=== PATIENT | male | born 1945 | race Caucasian/White ===

== ENCOUNTER → 2019-01-23 | Outpatient (CLI) | payer MEDICARE, BC ==
--- NOTE | 2019-01-23 15:21 | XR ---
EXAMINATION TYPE: XR KUB DATE OF EXAM: 01/23/2019 2:20 PM CLINICAL HISTORY: Abdominal pain. Right flank pain. TECHNIQUE: Single supine KUB image of the abdomen is obtained. COMPARISON: None. FINDINGS: Scattered gas is seen in nondilated small bowel loops. Gas and fecal material is seen in no ndilated colon. Supine imaging limiting evaluation for pneumoperitoneum. No gross evidence of pneumop eritoneum. No suspicious calcifications seen in the abdomen. The lung bases are clear and the osseous structures are intact. Moderate degenerative changes of the spine and hips. Old fracture deformity o f the left L3 transverse process. Small phleboliths are seen within the pelvis. IMPRESSION: Nonobstructive bowel gas pattern.
== END | disposition home or self-care (01) ==
LOC: RADXRMAIN 14:08
PROVIDERS: ATTEND Nurse Practitioner Women's Health
DX: R10.9 Unspecified abdominal pain (principal)
CPT/HCPCS: 74018

== ENCOUNTER → 2019-08-01 | Outpatient (CLI) | payer MEDICARE, BC ==
--- NOTE | 2019-08-01 10:04 | CT ---
EXAMINATION TYPE: CT lumbar spine wo con DATE OF EXAM: 08/01/2019 COMPARISON: None HISTORY: low back pain CT DLP: 1416.2 mGycm CONTRAST: None TECHNIQUE: CT of the lumbar spine is performed on a spiral scan at 3 mm thick sections. Reconstructed images are performed in the coronal and sagittal planes. FINDINGS: T12-L1: No focal disc herniation or significant disc bulge is evident. No spinal canal stenosis or neural foraminal stenosis is present. L1-L2: No focal disc herniation or significant disc bulge is evident. No spinal canal stenosis or n eural foraminal stenosis is present L2-L3: Minimal disc bulge is present. Some facet hypertrophy is present. No spinal canal stenosis or neural foraminal stenosis is present. L3-L4: Broad-based disc bulge has mild anterior thecal sac compression. Facet degenerative changes ar e present. Some ligamentum flavum laxity is present. No spinal canal stenosis or neural foraminal bartolo nosis is present. L4-L5: There is a grade 1 spondylolisthesis of L4 anterior on L5. Marked facet hypertrophy is present . Ligamentum flavum laxity is present. Disc uncovering in conjunction with the ligamentum flavum laxi ty is contributing to spinal canal narrowing. Moderate left and slightly more severe right foraminal stenosis is present. L5-S1: There is loss of disc height to this level. Some endplate spurring is present. No spinal canal stenosis or neural foraminal stenosis is present. IMPRESSION: 1. Grade 1 spondylolisthesis of L4 anterior and L5. 2. Disc uncovering at L4-5 in conjunction with ligamentum flavum laxity is contributing to spinal can al narrowing. 3. Foraminal narrowing L4-5 secondary to disc uncovering. This is greater on the right than the left. Correlate with L5 radicular symptoms. 4. Degenerative facet changes to the mid and lower lumbar spine.
== END | disposition home or self-care (01) ==
LOC: RADCTMAIN 06:43
PROVIDERS: ATTEND Family Medicine
DX: M43.16 Spondylolisthesis, lumbar region (principal); M48.061 Spinal stenosis, lumbar region without neurogenic claudication; M47.816 Spondylosis without myelopathy or radiculopathy, lumbar region; Z88.0 Allergy status to penicillin
CPT/HCPCS: 72131

== ENCOUNTER 2022-12-17 07:49 | Day surgery (SDC) | payer MEDICARE, BC ==
[2022-12-17] MEDS ORDERED: LIDOCAINE 1% (10MG/ML) FOR IV START INTRADERMA PRN (08:36)
[2022-12-17] MEDS ORDERED: LACTATED RINGERS 1,000 ML IV SCH (08:36)
[2022-12-17] MEDS ORDERED: LACTATED RINGERS 1,000 ML IV ONE (08:41)
[2022-12-17 08:50] VITALS: TEMP 98
[2022-12-17] MEDS ORDERED: PROPOFOL 10 MG/ML 20 ML VIAL IV ONE (09:01)
--- NOTE | 2022-12-17 09:04 | P.GSHP ---
History of Present Illness H&P Date: 12/17/22 Chief Complaint: Positive colon guard test Is a 77-year-old male who recently has a positive colon guard test. Patient presents today for colonoscopy. Past Medical History Past Medical History: Asthma, COPD, Hyperlipidemia, Hypertension History of Any Multi-Drug Resistant Organisms: None Reported Past Surgical History: Joint Replacement, Orthopedic Surgery, Tonsillectomy Additional Past Surgical History / Comment(s): colonoscopy, both knee replacements, back surgery , Additional Past Anesthesia/Blood Transfusion Reaction / Comment(s): heart skipped some beats during colonoscopy, no blood transfusion Smoking Status: Former smoker Medications and Allergies Home Medications Medication Instructions Recorded Confirmed Type Aspirin 325 mg PO DAILY 12/16/22 12/16/22 History Fluticasone Propion/Salmeterol 1 puff INHALATION BID PRN 12/16/22 12/16/22 His tory [Advair 500-50 Diskus] Ipratropium/Albuter 20-100Mcg 1 puff INHALATION DAILY PRN 12/16/22 12/16/22 History [Combivent Respimat 20-100Mcg Inhaler] Losartan Potassium 25 mg PO DAILY 12/16/22 12/16/22 History Probenecid [Benemid] 500 mg PO BID 12/16/22 12/16/22 History Rosuvastatin [Crestor] 10 mg PO DAILY 12/16/22 12/16/22 History hydrALAZINE HCL 25 mg PO BID 12/16/22 12/16/22 History hydroCHLOROthiazide [Hydrodiuril] 25 mg PO DAILY 12/16/22 12/16/22 History Allergies Allergy/AdvReac Type Severity Reaction Status Date / Time Penicillins AdvReac Rash/Hives Verified 12/16/22 08:27 Surgical - Exam Vital Signs Temp Pulse Resp BP Pulse Ox 98 F 64 18 152/80 95 12/17/22 08:41 12/17/22 08:41 12/17/22 08:41 12/17/22 08:41 12/17/22 08:41 - General well developed, well nourished, no distress - Eyes PERRL - ENT normal pinna - Neck no masses - Respiratory normal expansion - Cardiovascular Rhythm: regular - Abdomen Abdomen: soft, non tender Assessment and Plan Assessment: Positive colon guard test. We'll perform colonoscopy.
--- NOTE | 2022-12-17 09:16 | P.OP ---
Date of Procedure: 12/17/22 Preoperative Diagnosis: Positive colon guard test Screening colonoscopy Postoperative Diagnosis: Diverticulosis Procedure(s) Performed: Colonoscopy Anesthesia: MAC Surgeon: Sarbjit Roca Pathology: none sent Condition: stable Disposition: PACU Description of Procedure: The patient's placed on the endoscopy table in the lateral position. He received IV sedation. Digital rectal exam was performed. This revealed no ebonized. Flexible colonoscope was then placed patient anus and passed throughout the entire colon. The ileocecal valve was visualized. The cecum, ascending and transverse colon appeared normal. The descending and and sigmoid colon had mild diverticulosis. Scope summer back the rectum this appeared normal. Scope withdrawn for patient. There is no evidence of any colon polyps.
[2022-12-17 09:56] VITALS: BP 123/78; PULSE 67; RESP 20
== END 2022-12-17 10:10 | disposition home or self-care (01) ==
LOC: ORWHC2ENDO 07:49
PROVIDERS: ATTEND Surgery
DX: Z12.11 Encounter for screening for malignant neoplasm of colon (principal); R19.5 Other fecal abnormalities; K57.92 Diverticulitis of intestine, part unspecified, without perforation or abscess without bleeding; I10 Essential (primary) hypertension; E78.5 Hyperlipidemia, unspecified; J45.909 Unspecified asthma, uncomplicated; Z88.0 Allergy status to penicillin; Z87.891 Personal history of nicotine dependence; Z79.51 Long term (current) use of inhaled steroids; Z79.899 Other long term (current) drug therapy
CPT/HCPCS: 45378; J2704

== ENCOUNTER → 2023-04-28 | Outpatient (CLI) | payer MEDICARE, BC ==
--- NOTE | 2023-05-01 12:41 | CT ---
EXAMINATION TYPE: CT lumbar spine wo con CT DLP: 1353.40 mGycm, Automated exposure control for dose reduction was used. DATE OF EXAM: 04/28/2023 1:51 PM COMPARISON: 08/01/2019. CLINICAL INDICATION:Male, 78 years old with history of R31.9,N54.50 LOW BACK PAIN, UNSPECIFIED,D72.82 9, Low back pain, frequent urination, hematuria, denies injury. Back sx 1994. TECHNIQUE: Multiple axial images were obtained from the midportion of T11 through the sacroiliac jacuqelin nts. Soft tissue and bone windows in coronal and sagittal planes were obtained and reviewed. Contrast used: mL of , (None, if empty). Oral contrast used: (None, if empty). FINDINGS: Alignment: There are 5 lumbar type vertebral bodies with grade 1 anterolisthesis of L4 and L5. No spo ndylolysis. Bone: Severe facet joint arthropathy at L4-L5 and L5-S1. The remainder of the levels have mild to mod erate facet joint arthropathy. There is early pseudoarthrosis of the spinous processes in the lower s pine. Multilevel degeneration changes with osteophyte formation disc space narrowing and osteophyte f ormation. Discs: T12-L1: No spinal canal or neural foraminal stenosis is identified. L1-L2: No spinal canal or neural foraminal stenosis is identified. L2-L3: No spinal canal or neural foraminal stenosis is identified. L3-L4: No spinal canal or neural foraminal stenosis is identified. L4-L5: Grade 1 anterolisthesis of L4 on L5 with moderate spinal canal stenosis. There is mild to mode rate neural foraminal stenosis at this level. L5-S1: Facet joint arthropathy, osteophytes and disc bulging result in mild spinal canal stenosis and moderate bilateral neural foraminal stenosis. Other: Severe atherosclerosis of the coronary arteries. Few scattered colonic diverticula. IMPRESSION: Overall findings may be minimally progressed from 2019. 1. Grade 1 anterolisthesis of L4 and L5 without spondylolysis. Moderate spinal canal stenosis at thi s level. 2. Mild to moderate degeneration changes worse at L5-S1 with moderate bilateral neural foraminal bartolo nosis. 3. Findings suggestive of early Baastrup's disease.
== END | disposition home or self-care (01) ==
LOC: RADCTMAIN 12:29
PROVIDERS: ATTEND Family Medicine
DX: R31.9 Hematuria, unspecified (principal); D72.829 Elevated white blood cell count, unspecified; M43.16 Spondylolisthesis, lumbar region; M51.37 Other intervertebral disc degeneration, lumbosacral region; M99.73 Connective tissue and disc stenosis of intervertebral foramina of lumbar region; M48.061 Spinal stenosis, lumbar region without neurogenic claudication; M47.816 Spondylosis without myelopathy or radiculopathy, lumbar region
CPT/HCPCS: 72131

== ENCOUNTER 2023-12-31 12:17 | Observation (INO) | payer MEDICARE, BC ==
[2023-12-31 12:31] LABS: Glucose,Whole Blood 173 mg/dL (70-110)
--- NOTE | 2023-12-31 12:48 | ED ---
General Adult HPI - General Chief complaint: Shortness of Breath Stated complaint: high heartrate/high bp/ALMA Time Seen by Provider: 12/31/23 12:40 Source: patient, RN notes reviewed, old records reviewed Mode of arrival: ambulatory Limitations: no limitations - History of Present Illness Initial comments: This is a 78-year-old male who presents to the emergency department complaining of shortness of breath the last 4 days. Patient states he has not had any chest pain or palpitation. Patient denies any fever chills or cough. Patient states he just feels short of breath particularly moves around. Patient denies any abdominal pain patient has nausea vomit diarrhea. Patient denies any history of atrial fibrillation. Patient denies history of similar shortness of breath per patient no swelling of the legs or calf tenderness. - Related Data Home Medications Medication Instructions Recorded Confirmed Aspirin 325 mg PO DAILY 12/16/22 12/16/22 Fluticasone Propion/Salmeterol 1 puff INHALATION BID PRN 12/16/22 12/16/22 [Advair 500-50 Diskus] Ipratropium/Albuter 20-100Mcg 1 puff INHALATION DAILY PRN 12/16/22 12/16/22 [Combivent Respimat 20-100Mcg Inhaler] Losartan Potassium 25 mg PO DAILY 12/16/22 12/16/22 Probenecid [Benemid] 500 mg PO BID 12/16/22 12/16/22 Rosuvastatin [Crestor] 10 mg PO DAILY 12/16/22 12/16/22 hydrALAZINE HCL 25 mg PO BID 12/16/22 12/16/22 hydroCHLOROthiazide [Hydrodiuril] 25 mg PO DAILY 12/16/22 12/16/22 Allergies Allergy/AdvReac Type Severity Reaction Status Date / Time Penicillins AdvReac Rash/Hives Verified 12/31/23 12:26 Review of Systems ROS Statement: Those systems with pertinent positive or pertinent negative responses have been documented in the HPI. ROS Other: All systems not noted in ROS Statement are negative. Past Medical History Past Medical History: Asthma, COPD, Hyperlipidemia, Hypertension History of Any Multi-Drug Resistant Organisms: None Reported Past Surgical History: Joint Replacement, Orthopedic Surgery, Tonsillectomy Additional Past Surgical History / Comment(s): colonoscopy, both knee replacements, back surgery , Additional Past Anesthesia/Blood Transfusion Reaction / Comment(s): heart skipped some beats during colonoscopy, no blood transfusion Past Psychological History: No Psychological Hx Reported Smoking Status: Former smoker General Exam - General Exam Comments Initial Comments: GENERAL: Patient is well-developed and well-nourished. Patient is nontoxic and well- hydrated and is in mild distress. ENT: Neck is soft and supple. No significant lymphadenopathy is noted. Oropharynx is clear. Moist mucous membranes. Neck has full range of motion without eliciting any pain. EYES: The sclera were anicteric and conjunctiva were pink and moist. Extraocular movements were intact and pupils were equal round and reactive to light. Eyelids were unremarkable. PULMONARY: Unlabored respirations. Good breath sounds bilaterally. No audible rales rhonchi or wheezing was noted. CARDIOVASCULAR: Patient's heart rate is at 100 bpm but it is irregular ABDOMEN: Soft and nontender with normal bowel sounds. SKIN: Skin is clear with no lesions or rashes and otherwise unremarkable. NEUROLOGIC: Patient is alert and oriented x3. Cranial nerves II through XII are grossly intact. Motor and sensory are also intact. Normal speech, volume and content. Symmetrical smile. MUSCULOSKELETAL: Normal extremities with adequate strength and full range of motion. No lower extremity swelling or edema. No calf tenderness. LYMPHATICS: No significant lymphadenopathy is noted PSYCHIATRIC: Normal psychiatric evaluation. Limitations: no limitations Course Vital Signs 12/31/23 12/31/23 12/31/23 12:27 12:41 12:45 Temperature 97.5 F L 98.8 F Pulse Rate 100 81 Respiratory 20 18 18 Rate Blood Pressure 171/70 153/96 O2 Sat by Pulse 98 97 Oximetry 12/31/23 12/31/23 13:40 13:43 Temperature Pulse Rate 115 H 80 Respiratory 17 Rate Blood Pressure 152/99 O2 Sat by Pulse 95 Oximetry Medical Decision Making - Medical Decision Making EKG is interpreted by myself. EKG shows atrial fibrillation at 93 bpm QRS is 89 QT interval 341 QTc is 391. Patient's EKG shows no ST segment ovation or depression Was pt. sent in by a medical professional or institution (, PA, [employer], urgent care, hospital, or correction...) When possible be specific @ -No Did you speak to anyone other than the patient for history (EMS, parent, family, police, friend...)? What history was obtained from this source @ -No Did you review nursing and triage notes (agree or disagree)? Why? @ -I reviewed and agree with nursing and triage notes Were old charts reviewed (outside hosp., previous admission, EMS record, old EKG, old radiological studies, urgent care reports/EKG's, correction records)? Report findings @ -No old charts were reviewed Differential Diagnosis? @ -Differential Dyspnea: Coronary syndrome, arrhythmia, tamponade, asthma, COPD, pulmonary embolism, pneumonia, pneumothorax, pulmonary effusion, anaphylaxis, diabetic ketoacidosis, flailed chest, pulmonary contusion, diaphragmatic rupture, anemia, neuromuscular, this is not meant to be an all-inclusive list. EKG interpreted by me (3pts min.). @ -As above X-rays interpreted by me (1pt min.). @ -Chest x-ray shows no acute normality CT interpreted by me (1pt min.). @ -None done U/S interpreted by me (1pt. min.). @ -None done What testing was considered but not performed or refused? (CT, X-rays, U/S, labs)? Why? @ -None What meds were considered but not given or refused? Why? @ -None Did you discuss the management of the patient with other professionals (professionals i.e. , PA, [employer], lab, RT, psych nurse, delinquency prevention social worker, binder stripper machine, teacher, co founder and chief strategy officer, case folder)? Give summary @ -I spoke with Dr. Lazcano he agrees to admit the patient admit the patient wrote admitting orders Was smoking cessation discussed for >3mins.? @ -No Was critical care preformed (if so, how long)? @ -No Were there social determinants of health that impacted care today? How? (Homelessness, low income, unemployed, alcoholism, drug addiction, transportation, low edu. Level, literacy, decrease access to med. care, correction, rehab)? @ -No Was there de-escalation of care discussed even if they declined (Discuss DNR or withdrawal of care, Hospice)? DNR status @ -No What co-morbidities impacted this encounter? (DM, HTN, Smoking, COPD, CAD, Cancer, CVA, ARF, Chemo, Hep., AIDS, mental health diagnosis, sleep apnea, morbid obesity)? @ -None Was patient admitted / discharged? Hospital course, mention meds given and route, prescriptions, significant lab abnormalities, going to OR and other pertinent info. @ -Patient had new onset A-fib and patient will be admitted and placed on heparin and cardiology will see the patient. Undiagnosed new problem with uncertain prognosis? @ -No Drug Therapy requiring intensive monitoring for toxicity (Heparin, Nitro, Insulin, Cardizem)? @ -No Were any procedures done? @ -No Diagnosis/symptom? @ -New onset A-fib Acute, or Chronic, or Acute on Chronic? @ -Acute Uncomplicated (without systemic symptoms) or Complicated (systemic symptoms)? @ -Complicated Side effects of treatment? @ -No Exacerbation, Progression, or Severe Exacerbation? @ -No Poses a threat to life or bodily function? How? (Chest pain, [place], [place], pneumonia, PE, COPD, DKA, ARF, appy, cholecystitis, CVA, Diverticulitis, Homicidal, Suicidal, threat to staff... and all critical care pts) @ -Yes this can lead to clotting and stroke. Diagnosis/symptom? @ -Dyspnea Acute, or Chronic, or Acute on Chronic? @ -Acute Uncomplicated (without systemic symptoms) or Complicated (systemic symptoms)? @ -Complicated Side effects of treatment? @ -None Exacerbation, Progression, or Severe Exacerbation] @ -No Poses a threat to life or bodily function? @ -No - Lab Data Result diagrams: 12/31/23 12:52 12/31/23 12:52 Lab Results 12/31/23 12/31/23 12/31/23 Range/Units 12:29 12:52 12:52 WBC 10.2 (3.8-10.6) k/uL RBC 4.99 (4.30-5.90) m/uL Hgb 15.5 (13.0-17.5) gm/dL Hct 45.8 (39.0-53.0) % MCV 91.7 (80.0-100.0) fL MCH 30.9 (25.0-35.0) pg MCHC 33.7 (31.0-37.0) g/dL RDW 12.2 (11.5-15.5) % Plt Count 217 (150-450) k/uL MPV 7.5 Neutrophils % 65 % Lymphocytes % 23 % Monocytes % 7 % Eosinophils % 2 % Basophils % 0 % Neutrophils # 6.6 (1.3-7.7) k/uL Lymphocytes # 2.4 (1.0-4.8) k/uL Monocytes # 0.7 (0-1.0) k/uL Eosinophils # 0.2 (0-0.7) k/uL Basophils # 0.0 (0-0.2) k/uL PT 9.5 L (10.0-12.5) sec INR 0.8 (<1.2) APTT 25.5 (22.0-30.0) sec D-Dimer 0.75 H (<0.60) mg/L FEU Sodium (137-145) mmol/L Potassium (3.5-5.1) mmol/L Chloride (98-107) mmol/L Carbon Dioxide (22-30) mmol/L Anion Gap mmol/L BUN (9-20) mg/dL Creatinine (0.66-1.25) mg/dL Est GFR (CKD-EPI)AfAm (>60 ml/min/1.73 sqM) Est GFR (CKD-EPI)NonAf (>60 ml/min/1.73 sqM) Glucose (74-99) mg/dL POC Glucose (mg/dL) 173 H (70-110) mg/dL POC Glu Ammonium Nitrate Crystallizer ID [place] Deya Plasma Lactic Acid Claude (0.7-2.0) mmol/L Calcium (8.4-10.2) mg/dL Magnesium (1.6-2.3) mg/dL Total Bilirubin (0.2-1.3) mg/dL AST (17-59) U/L ALT (4-49) U/L Alkaline Phosphatase (38-126) U/L Troponin I (0.000-0.034) ng/mL NT-Pro-B Natriuret Pep pg/mL Total Protein (6.3-8.2) g/dL Albumin (3.5-5.0) g/dL 12/31/23 12/31/23 12/31/23 Range/Units 12:52 12:52 12:52 WBC (3.8-10.6) k/uL RBC (4.30-5.90) m/uL Hgb (13.0-17.5) gm/dL Hct (39.0-53.0) % MCV (80.0-100.0) fL MCH (25.0-35.0) pg MCHC (31.0-37.0) g/dL RDW (11.5-15.5) % Plt Count (150-450) k/uL MPV Neutrophils % % Lymphocytes % % Monocytes % % Eosinophils % % Basophils % % Neutrophils # (1.3-7.7) k/uL Lymphocytes # (1.0-4.8) k/uL Monocytes # (0-1.0) k/uL Eosinophils # (0-0.7) k/uL Basophils # (0-0.2) k/uL PT (10.0-12.5) sec INR (<1.2) APTT (22.0-30.0) sec D-Dimer (<0.60) mg/L FEU Sodium 137 (137-145) mmol/L Potassium 3.9 (3.5-5.1) mmol/L Chloride 104 (98-107) mmol/L Carbon Dioxide 22 (22-30) mmol/L Anion Gap 11 mmol/L BUN 36 H (9-20) mg/dL Creatinine 1.02 (0.66-1.25) mg/dL Est GFR (CKD-EPI)AfAm 82 (>60 ml/min/1.73 sqM) Est GFR (CKD-EPI)NonAf 71 (>60 ml/min/1.73 sqM) Glucose 148 H (74-99) mg/dL POC Glucose (mg/dL) (70-110) mg/dL POC Glu Ammonium Nitrate Crystallizer ID Plasma Lactic Acid Claude 1.5 (0.7-2.0) mmol/L Calcium 9.2 (8.4-10.2) mg/dL Magnesium 1.8 (1.6-2.3) mg/dL Total Bilirubin 0.5 (0.2-1.3) mg/dL AST 23 (17-59) U/L ALT 23 (4-49) U/L Alkaline Phosphatase 111 (38-126) U/L Troponin I <0.012 (0.000-0.034) ng/mL NT-Pro-B Natriuret Pep 24 pg/mL Total Protein 7.4 (6.3-8.2) g/dL Albumin 4.2 (3.5-5.0) g/dL Critical Care Time Critical Care Time: Yes Total Critical Care Time: 35 Disposition Clinical Impression: New onset atrial fibrillation Disposition: ADMITTED IP TO THIS HOSP Referrals: Nael Lockhart Jr, [Primary Care Provider] - 1-2 days Time of Disposition: 14:22
[2023-12-31 13:08] LABS: Basophils % (A) 0 %; Eosinophils # (A) 0.2 k/uL (0-0.7); Eosinophils % (A) 2 %; HCT 45.8 % (39.0-53.0); HGB 15.5 gm/dL (13.0-17.5); Lymphocytes # (A) 2.4 k/uL (1.0-4.8); Lymphocytes % (A) 23 %; MCH 30.9 pg (25.0-35.0); MCHC 33.7 g/dL (31.0-37.0); MCV 91.7 fL (80.0-100.0); Mean Platelet Volume 7.5; Monocytes # (A) 0.7 k/uL (0-1.0); Monocytes % (A) 7 %; Neutrophils # (A) 6.6 k/uL (1.3-7.7); Neutrophils % (A) 65 %; Platelet Count 217 k/uL (150-450); RBC 4.99 m/uL (4.30-5.90); RDW 12.2 % (11.5-15.5); WBC 10.2 k/uL (3.8-10.6)
--- NOTE | 2023-12-31 13:09 | XR ---
EXAMINATION TYPE: XR chest 2V DATE OF EXAM: 12/31/2023 1:03 PM COMPARISON: 08/12/2015 CLINICAL INDICATION: Male, 78 years old with history of difficulty breathing, TECHNIQUE: XR chest 2V view(s) obtained. FINDINGS: The heart size is normal. The pulmonary vasculature is normal. The lungs are clear. Some flattening of the diaphragms is present which may be related to emphysemat ous change. Findings are stable. IMPRESSION: 1. No acute pulmonary process. [facility], , 12/31/2023 1:06 PM
[2023-12-31 13:24] LABS: INR 0.8 (<1.2); Partial Thromboplastin Time 25.5 sec (22.0-30.0); Prothrombin Time 9.5 sec (10.0-12.5)
[2023-12-31 13:32] LABS: ALT 23 U/L (4-49); AST 23 U/L (17-59); African American GFR (CKD) 82 (>60 ml/min/1.73 sqM); Albumin 4.2 g/dL (3.5-5.0); Alkaline Phosphatase 111 U/L (38-126); Anion Gap 11 mmol/L; Blood Urea Nitrogen 36 mg/dL (9-20); Calcium 9.2 mg/dL (8.4-10.2); Carbon Dioxide 22 mmol/L (22-30); Chloride 104 mmol/L (98-107); Glucose 148 mg/dL (74-99); Magnesium 1.8 mg/dL (1.6-2.3); Non-African American GFR(CKD) 71 (>60 ml/min/1.73 sqM); Potassium 3.9 mmol/L (3.5-5.1); Sodium 137 mmol/L (137-145); Total Bilirubin 0.5 mg/dL (0.2-1.3); Total Protein 7.4 g/dL (6.3-8.2)
[2023-12-31 13:36] LABS: NT-Pro-B-Type Natriuretic Pept 24 pg/mL
[2023-12-31] MEDS ORDERED: NITROGLYCERIN SL TABS 0.4 MG TAB SUBLINGUAL PRN (14:23)
[2023-12-31] MEDS: HEPARIN SOD,PORK IN 0.45% NACL 25,000 UNIT in 0.45% NACL 1 250ML.BAG IV SCH (14:51)
[2023-12-31] MEDS: HEPARIN SODIUM 1,000 UN/ML (10ML VL) IV ONE (14:51)
--- NOTE | 2023-12-31 16:10 | P.HPIM ---
History of Present Illness H&P Date: 12/31/23 Chief Complaint: Shortness of breath Carlos is a patient well-known to the practice. He was last seen in June 2023. He has a known history of hypertension and COPD. He complains of a 4-day history of shortness of breath with exertion that seems more than it had been in the past. On presentation the emergency room he is found to be in atrial fibrillation. He has been placed on a heparin drip he denies any chest pains pressures at this time no shortness of breath at rest. No nausea or vomiting, currently his heart rate is around 100. O2 saturation normal. Labs show normal white count hemoglobin is 15.5 D-dimer is 0.75 chemistries are essentially normal with the exception of a BUN of 36 creatinine 1.02 GFR is 71 his glucose is 148. Troponin is negative beta natruretic peptide is normal. He is resting comfortably Review of Systems All systems: negative Past Medical History Past Medical History: Asthma, COPD, Hyperlipidemia, Hypertension History of Any Multi-Drug Resistant Organisms: None Reported Past Surgical History: Joint Replacement, Orthopedic Surgery, Tonsillectomy Additional Past Surgical History / Comment(s): colonoscopy, both knee replacements, back surgery , Additional Past Anesthesia/Blood Transfusion Reaction / Comment(s): heart skipped some beats during colonoscopy, no blood transfusion Past Psychological History: No Psychological Hx Reported Smoking Status: Former smoker Medications and Allergies Home Medications Medication Instructions Recorded Confirmed Type Aspirin 325 mg PO DAILY 12/16/22 12/31/23 History Ipratropium/Albuter 20-100Mcg 1 puff INHALATION RT-QID PRN 12/16/22 12/31/23 History [Combivent Respimat 20-100Mcg Inhaler] Losartan Potassium 50 mg PO DAILY 12/16/22 12/31/23 History Probenecid [Benemid] 500 mg PO BID 12/16/22 12/31/23 History Albuterol Sulfate [Ventolin HFA] 2 puff INHALATION RT-QID PRN 12/31/23 12/31/23 History Chlorthalidone [Hygroton] 25 mg PO DAILY 12/31/23 12/31/23 History Cholecalciferol [Vitamin D3 (125 125 mcg PO HS 12/31/23 12/31/23 History Mcg = 5000 Iu)] Elderberry/Vitamin C/Zinc 1 tab PO DAILY@1200 12/31/23 12/31/23 History Fluticasone Propion/Salmeterol 1 puff INHALATION RT-BID 12/31/23 12/31/23 History [Wixela 500-50 Inhub] Vitamin A Acetate [Vitamin A] 3,000 mcg PO DAILY 12/31/23 12/31/23 History Allergies Allergy/AdvReac Type Severity Reaction Status Date / Time Penicillins Allergy Rash/Hives Verified 12/31/23 14:56 Physical Exam Vitals: Vital Signs Temp Pulse Resp BP Pulse Ox 12/31/23 15:57 98.3 F 78 18 135/98 97 12/31/23 14:57 98.8 F 81 18 137/99 97 12/31/23 13:43 80 17 152/99 95 12/31/23 13:40 115 H 12/31/23 12:45 98.8 F 81 18 153/96 97 12/31/23 12:41 18 12/31/23 12:27 97.5 F L 100 20 171/70 98 Intake and Output 12/31/23 12/31/23 12/31/23 06:59 14:59 22:59 Output Total 200 Balance -200 Output: Urine 200 Other: Weight 102.058 kg GENERAL: Well-appearing, well-nourished and in no acute distress. HEAD: Atraumatic, normocephalic. EYES: Pupils equal round and reactive to light, extraocular movements intact, sclera anicteric, conjunctiva are normal. ENT:nares patent, oropharynx clear without exudates. Moist mucous membranes. NECK: Normal range of motion, supple without lymphadenopathy or JVD, no thyromegaly LUNGS: Breath sounds coarse to auscultation bilaterally and equal. No wheezes rales or rhonchi. HEART: Regular rate and rhythm without murmurs, rubs or gallops.S1S2 Normal ABDOMEN: Soft, nontender, normoactive bowel sounds. No guarding, no rebound. No masses appreciated. EXTREMITIES: Normal range of motion, no pitting or edema. No clubbing or cyanosis. NEUROLOGICAL: Cranial nerves II through XII grossly intact. Normal speech, normal gait. PSYCH: Normal mood, normal affect. SKIN: Warm, Dry, normal turgor, no rashes or lesions noted. Results CBC & Chem 7: 12/31/23 12:52 12/31/23 12:52 Labs: Abnormal Lab Results - Last 24 Hours (Table) 12/31/23 12/31/23 12/31/23 Range/Units 12:29 12:52 12:52 PT 9.5 L (10.0-12.5) sec D-Dimer 0.75 H (<0.60) mg/L FEU BUN 36 H (9-20) mg/dL Glucose 148 H (74-99) mg/dL POC Glucose (mg/dL) 173 H (70-110) mg/dL Chest x-ray: report reviewed Thrombosis Risk Factor Assmnt - DVT/VTE Prophylaxis DVT/VTE Prophylaxis: Pharmacologic Prophylaxis ordered Assessment and Plan (1) Chronic obstructive pulmonary disease, unspecified Current Visit: Yes Status: Acute Code(s): J44.9 - CHRONIC OBSTRUCTIVE PULMONARY DISEASE, UNSPECIFIED SNOMED Code(s): 56082580 (2) Essential (primary) hypertension Current Visit: Yes Status: Acute Code(s): I10 - ESSENTIAL (PRIMARY) HYPERTENSION SNOMED Code(s): 16822096 (3) Dyspnea Current Visit: Yes Status: Acute Code(s): R06.00 - DYSPNEA, UNSPECIFIED SNOMED Code(s): 808934316 (4) New onset atrial fibrillation Current Visit: Yes Status: Acute Code(s): I48.91 - UNSPECIFIED ATRIAL FIBRILLATION SNOMED Code(s): 96154369 Plan: Patient will be kept for observation overnight to be seen by cardiology. He remains on a heparin drip at this time Home medications will be reordered repeat labs in a.m. he will be reevaluated next 24 hours.
--- NOTE | 2023-12-31 19:20 | CA ---
Transthoracic Echo Report Name: Carlos Reyes Age: 78 Gender: M : 1945 Exam Date: 12/31/2023 16:25 Exam Location: [facility] Ht (in): 75 Wt (lb): 225 Ordering Physician: Jevon Lazcano MD Attending/Referring Phys: [employer] Officer Avani Gutierrez RDCS Procedure CPT: Indications: new afib Cardiac Hx: Technical Quality: Technically difficult study Contrast 1: Definity Total Dose (mL): 2 Contrast 2: Total Dose (mL): MEASUREMENTS (Male / Female) Normal Values 2D ECHO LVOT Diameter 2.1 cm LV Diastolic Volume MOD BP 101.6 cm??? 67 - 155 / 56 - 104 cm??? LV Systolic Volume MOD BP 33.0 cm??? 22 - 58 / 19 - 49 cm??? LV Ejection Fraction MOD BP 67.5 % >= 55 % LV Cardiac Index MOD BP 2227.0 cm???/min???m??? LV Diastolic Volume MOD 4C 112.7 cm??? LV Systolic Volume MOD 4C 37.5 cm??? LV Ejection Fraction MOD 4C 66.7 % LV Cardiac Index MOD 4C 2442.3 cm???/min???m??? LV Diastolic Length 4C 8.6 cm LV Systolic Length 4C 6.9 cm LV Diastolic Volume MOD 2C 87.9 cm??? LV Systolic Volume MOD 2C 27.9 cm??? LV Ejection Fraction MOD 2C 68.3 % LV Cardiac Index MOD 2C 1951.2 cm???/min???m??? LV Diastolic Length 2C 8.3 cm LV Systolic Length 2C 6.6 cm LA Volume 52.5 cm??? 18 - 58 / 22 - 52 cm??? LA Volume Index 22.4 cm???/m??? 16 - 28 cm???/m??? Ascending Aorta Diameter 4.2 cm DOPPLER AV Peak Velocity 146.8 cm/s AV Peak Gradient 8.6 mmHg AV Mean Velocity 102.9 cm/s AV Mean Gradient 4.6 mmHg AV Velocity Time Integral 27.1 cm LVOT Peak Velocity 102.3 cm/s LVOT Peak Gradient 4.2 mmHg LVOT Velocity Time Integral 20.4 cm LVOT Stroke Volume 72.0 cm??? LVOT Stroke Volume Index 31.2 ml/m??? LVOT Cardiac Index 2338.0 cm???/min???m??? AV Area Cont Eq vti 2.7 cm??? AV Area Cont Eq pk 2.5 cm??? TR Peak Velocity 242.0 cm/s TR Peak Gradient 23.4 mmHg Right Atrial Pressure 10.0 mmHg Pulmonary Artery Systolic Pressu 33.4 mmHg Right Ventricular Systolic Press 33.4 mmHg FINDINGS Left Ventricle Left ventricular ejection fraction is estimated at 60-65 %. Left ventricular cavity size normal. Left ventricular wall thickness normal. No obvious regional wall motion abnormalities. Right Ventricle Normal right ventricular size and function. Right ventricular systolic pressure within normal limits. Right Atrium Normal right atrial size. Left Atrium Normal left atrial size. Mitral Valve Structurally normal mitral valve. No evidence for mitral valve prolapse. No mitral stenosis. Trace mitral regurgitation. Aortic Valve Aortic valve not well visualized. No aortic stenosis. Mild aortic regurgitation. Tricuspid Valve Structurally normal tricuspid valve. No tricuspid stenosis. Mild tricuspid regurgitation. Pulmonic Valve Pulmonic valve not well visualized. Pericardium No pericardial effusion. Aorta Aortic annulus normal. Ascending aorta mildly enlarged. CONCLUSIONS Normal biventricular systolic function Mild aortic regurgitation. The aortic valve was poorly visualized Normal pulmonary artery systolic pressure No pericardial effusion Previewed by: Dr. Garrison Torres MD (Electronically Signed) Final Date: 31 December 2023 19:19
[2024-01-01 03:14] LABS: Basophils % (A) 0 %; Eosinophils # (A) 0.2 k/uL (0-0.7); Eosinophils % (A) 3 %; HCT 44.6 % (39.0-53.0); Lymphocytes % (A) 26 %; MCH 30.3 pg (25.0-35.0); MCHC 33.6 g/dL (31.0-37.0); MCV 90.2 fL (80.0-100.0); Mean Platelet Volume 7.7; Monocytes # (A) 0.5 k/uL (0-1.0); Monocytes % (A) 7 %; Neutrophils # (A) 4.6 k/uL (1.3-7.7); Neutrophils % (A) 61 %; Platelet Count 202 k/uL (150-450); RBC 4.95 m/uL (4.30-5.90); RDW 12.5 % (11.5-15.5); WBC 7.5 k/uL (3.8-10.6)
[2024-01-01 03:21] VITALS: RESP 16
[2024-01-01 03:44] LABS: ALT 21 U/L (4-49); AST 25 U/L (17-59); African American GFR (CKD) >90 (>60 ml/min/1.73 sqM); Albumin 3.8 g/dL (3.5-5.0); Alkaline Phosphatase 91 U/L (38-126); Anion Gap 7 mmol/L; Blood Urea Nitrogen 26 mg/dL (9-20); Calcium 8.9 mg/dL (8.4-10.2); Carbon Dioxide 20 mmol/L (22-30); Chloride 110 mmol/L (98-107); Glucose 125 mg/dL (74-99); Magnesium 1.8 mg/dL (1.6-2.3); Non-African American GFR(CKD) 86 (>60 ml/min/1.73 sqM); Potassium 3.3 mmol/L (3.5-5.1); Sodium 137 mmol/L (137-145); Total Bilirubin 0.6 mg/dL (0.2-1.3); Total Protein 6.7 g/dL (6.3-8.2)
[2024-01-01] MEDS: ASPIRIN 325 MG TAB PO SCH (08:19)
[2024-01-01] MEDS: METOPROLOL TARTRATE 25 MG TAB PO SCH (10:01)
[2024-01-01] MEDS: APIXABAN 5 MG TAB PO SCH (10:01)
[2024-01-01] MEDS: POTASSIUM CHLORIDE ER 20 MEQ TAB.ER PO STA (10:02)
--- NOTE | 2024-01-01 11:45 | P.CRDCN ---
History of Present Illness History of present illness: HISTORY OF PRESENT ILLNESS: This is a 78-year-old male with a past medical history significant for carotid atherosclerosis with previous right carotid endarterectomy, hypertension, and hy perlipidemia. Patient follows in the office with Dr. Torres. We have been asked to see the patient in consultation for new onset atrial fibrillation. Patient examined at the bedside. Patient presented to the hospital due to chief complaint of shortness of breath. Patient states he has been feeling short of breath for the past 4 days. He also reports having pain that went across his entire chest that was constant but has since resolved. He also reports having palpitations at home. He states that he checked his vitals at home and noticed that his blood pressure was high with a systolic around 200 and also that his heart rate was high. The patient presented to the ER for further evaluation. The patient was found to be in atrial fibrillation. The patient denies any history of atrial fibrillation. Patient was started on IV heparin. He has since converted to sinus mechanism and is maintaining sinus mechanism this morning. He denies any chest pain at the time of examination. He states that he still feels a little bit short of breath this morning but thinks that it is related to his anxiety. Patient states he is scheduled for a stress test in the office in February. DIAGNOSTICS: - EKG reveals atrial fibrillation with controlled ventricular rate. Repeat EKG reveals sinus mechanism with no signs of acute ischemia - Chest xray negative for acute process - Laboratory data: WBC 7.5. Hemoglobin 15.0. Platelet count 202. Sodium 137. Potassium 3.3. BUN 26. Creatinine 0.81. Troponin negative x 3. TSH 2.150. - Current home cardiac medications include losartan 50 mg daily, chlorthalidone 25 mg daily, aspirin 325 mg daily - Echocardiogram obtained this admission reveals ejection fraction 60 to 65% with mild aortic regurgitation - Cardiac catheterization history: Patient denies REVIEW OF SYSTEMS: At the time of my exam: CONSTITUTIONAL: Denies fever or chills. HEENT: Denies blurred vision, vision changes, or eye pain. Denies hemoptysis CARDIOVASCULAR: Denies chest pain. Denies orthopnea. Denies PND. Denies palpitations RESPIRATORY: Denies shortness of breath. GASTROINTESTINAL: Denies abdominal pain. Denies nausea or vomiting. HEMATOLOGIC: Denies bleeding disorders. GENITOURINARY: Denies any blood in urine. SKIN: Denies pruitis. Denies rash. PHYSICAL EXAM: VITAL SIGNS: Reviewed. GENERAL: Well-developed in no acute distress. HEENT: Head is normocephalic. Pupils are equal, round. Sclerae anicteric. Mucous membranes of the mouth are moist. Neck supple. No JVD or thyromegaly LUNGS: Respirations even and unlabored. Lungs essentially clear to auscultation bilaterally. HEART: Regular rate and rhythm. S1 and S2 heard. ABDOMEN: Soft. Nondistended. Nontender. EXTREMITIES: Normal range of motion. No clubbing or cyanosis. Peripheral pulses intact. No lower extremity edema NEUROLOGIC: Awake and alert. Oriented x 3. ASSESSMENT: Shortness of breath Palpitations New onset atrial fibrillation, currently maintaining sinus mechanism Hypertension Hyperlipidemia Carotid atherosclerosis with previous right carotid endarterectomy Former nicotine dependence PLAN: 2D echo obtained and reviewed TSH checked and within normal limits Discontinue IV heparin. Begin Eliquis 5 mg twice a day. [id number] score 3 Add metoprolol to tartrate 25 mg twice a day Hold losartan and chlorthalidone as patient's blood pressures are well- controlled this morning and he states he usually runs on the lower side at home Increase activity as tolerated. If patient has no further symptoms and no further shortness of breath he may be discharged home today from a cardiac standpoint Patient is scheduled for outpatient stress testing in the office in February 2024 Patient to follow-up postdischarge with Dr. Torres Nurse practitioner note has been reviewed by physician. Signing provider agrees with the documented findings, assessment, and plan of care documented by [employer] as a scribe. Past Medical History Past Medical History: Asthma, COPD, Hyperlipidemia, Hypertension History of Any Multi-Drug Resistant Organisms: None Reported Past Surgical History: Joint Replacement, Orthopedic Surgery, Tonsillectomy Additional Past Surgical History / Comment(s): colonoscopy, both knee replacements, back surgery , Past Anesthesia/Blood Transfusion Reactions: No Reported Reaction Additional Past Anesthesia/Blood Transfusion Reaction / Comment(s): heart skipped some beats during colonoscopy, no blood transfusion Past Psychological History: No Psychological Hx Reported Smoking Status: Former smoker Past Alcohol Use History: None Reported Past Drug Use History: None Reported Medications and Allergies Home Medications Medication Instructions Recorded Confirmed Type Ipratropium/Albuter 20-100Mcg 1 puff INHALATION RT-QID PRN 12/16/22 12/31/23 History [Combivent Respimat 20-100Mcg Inhaler] Losartan Potassium 50 mg PO DAILY 12/16/22 12/31/23 History Probenecid [Benemid] 500 mg PO BID 12/16/22 12/31/23 History Albuterol Sulfate [Ventolin HFA] 2 puff INHALATION RT-QID PRN 12/31/23 12/31/23 History Chlorthalidone [Hygroton] 25 mg PO DAILY 12/31/23 12/31/23 History Cholecalciferol [Vitamin D3 (125 125 mcg PO HS 12/31/23 12/31/23 History Mcg = 5000 Iu)] Elderberry/Vitamin C/Zinc 1 tab PO DAILY@1200 12/31/23 12/31/23 History Fluticasone Propion/Salmeterol 1 puff INHALATION RT-BID 12/31/23 12/31/23 History [Wixela 500-50 Inhub] Vitamin A Acetate [Vitamin A] 3,000 mcg PO DAILY 12/31/23 12/31/23 History Allergies Allergy/AdvReac Type Severity Reaction Status Date / Time Penicillins Allergy Rash/Hives Verified 12/31/23 14:56 Physical Exam Vitals: Vital Signs Temp Pulse Pulse Resp BP BP Pulse Ox 01/01/24 08:00 97.3 F L 77 16 110/78 96 01/01/24 03:21 63 16 113/69 96 12/31/23 23:29 69 18 138/72 96 12/31/23 19:55 98.0 F 82 18 126/77 95 12/31/23 15:57 98.3 F 78 18 135/98 97 12/31/23 15:06 98.1 F 76 18 145/79 97 12/31/23 14:57 98.8 F 81 18 137/99 97 12/31/23 13:43 80 17 152/99 95 12/31/23 13:40 115 H 12/31/23 12:45 98.8 F 81 18 153/96 97 12/31/23 12:41 18 12/31/23 12:27 97.5 F L 100 20 171/70 98 Intake and Output 12/31/23 01/01/24 01/01/24 22:59 06:59 14:59 Intake Total 309.333 373.358 Output Total 200 750 500 Balance 109.333 -750 -126.642 Intake: Intake, IV Titration 69.333 137.358 Amount Heparin Sod,Pork in 0.45% 69.333 137.358 NaCl 25,000 unit In 0.45 % NaCl 1 250ml.bag @ 9. 798 UNITS/KG/HR 10 mls/hr IV .Q24H [facility] Rx#: [id number] Oral 240 236 Output: Urine 200 750 500 Other: Voiding Method Toilet Toilet Urinal # Voids 1 Weight 102.058 kg 100.1 kg Results 01/01/24 02:58 01/01/24 02:58 Cardiac Enzymes 12/31/23 12/31/23 12/31/23 Range/Units 12:52 12:52 14:57 AST 23 (17-59) U/L Troponin I <0.012 <0.012 (0.000-0.034) ng/mL 12/31/23 01/01/24 Range/Units 17:28 02:58 AST 25 (17-59) U/L Troponin I <0.012 (0.000-0.034) ng/mL Coagulation 12/31/23 12/31/23 01/01/24 Range/Units 12:52 20:53 02:58 PT 9.5 L (10.0-12.5) sec APTT 25.5 34.0 H 46.9 H (22.0-30.0) sec CBC 12/31/23 01/01/24 Range/Units 12:52 02:58 WBC 10.2 7.5 (3.8-10.6) k/uL RBC 4.99 4.95 (4.30-5.90) m/uL Hgb 15.5 15.0 (13.0-17.5) gm/dL Hct 45.8 44.6 (39.0-53.0) % Plt Count 217 202 (150-450) k/uL Comprehensive Metabolic Panel 12/31/23 01/01/24 Range/Units 12:52 02:58 Sodium 137 137 (137-145) mmol/L Potassium 3.9 3.3 L (3.5-5.1) mmol/L Chloride 104 110 H (98-107) mmol/L Carbon Dioxide 22 20 L (22-30) mmol/L BUN 36 H 26 H (9-20) mg/dL Creatinine 1.02 0.81 (0.66-1.25) mg/dL Glucose 148 H 125 H (74-99) mg/dL Calcium 9.2 8.9 (8.4-10.2) mg/dL AST 23 25 (17-59) U/L ALT 23 21 (4-49) U/L Alkaline Phosphatase 111 91 (38-126) U/L Total Protein 7.4 6.7 (6.3-8.2) g/dL Albumin 4.2 3.8 (3.5-5.0) g/dL Current Medications Generic Name Dose Route Start Last Admin Trade Name Freq PRN Reason Stop Dose Admin Apixaban 5 mg 01/01/24 09:00 Apixaban 5 Mg Tab PO BID [facility] Protocol Metoprolol Tartrate 25 mg 01/01/24 09:00 Metoprolol Tartrate 25 Mg Tab PO BID [facility] Nitroglycerin 0.4 mg 12/31/23 14:23 Nitroglycerin Sl Tabs 0.4 Mg Tab SUBLINGUAL Q5M PRN Chest Pain Intake and Output 12/31/23 01/01/24 01/01/24 22:59 06:59 14:59 Intake Total 309.333 373.358 Output Total 200 750 500 Balance 109.333 -750 -126.642 Intake: Intake, IV Titration 69.333 137.358 Amount Heparin Sod,Pork in 0.45% 69.333 137.358 NaCl 25,000 unit In 0.45 % NaCl 1 250ml.bag @ 9. 798 UNITS/KG/HR 10 mls/hr IV .Q24H [facility] Rx#: [id number] Oral 240 236 Output: Urine 200 750 500 Other: Voiding Method Toilet Toilet Urinal # Voids 1 Weight 102.058 kg 100.1 kg 01/01/24 02:58 01/01/24 02:58
--- NOTE | 2024-01-01 12:21 | P.DS ---
Providers Date of admission: 12/31/23 14:26 Expected date of discharge: 01/01/24 Attending physician: Jevon Lazcano Consults: 12/31/23 14:23 Consult Physician Urgent Consulting Provider: [facility] Consult Reason/Comments: New onset A-fib Do you want consulting provider notified?: Yes Primary care physician: Nael Lockhart - Discharge Diagnosis(es) (1) New onset atrial fibrillation Current Visit: Yes Status: Acute (2) Chronic obstructive pulmonary disease, unspecified Current Visit: Yes Status: Acute (3) Essential (primary) hypertension Current Visit: Yes Status: Acute (4) Dyspnea Current Visit: Yes Status: Acute Hospital Course: Patient was seen and evaluated in the emergency room after he came in the ER for increased shortness of breath. He is found to be in AFib. How his heart rate was ranging between 80 and 100 20 originally. It calm down he did not need any medications to convert. He was started on heparin drip. He was admitted for Cardiology evaluation. 2D echo was done which was essentially normal. He converted to sinus rhythm overnight. He is doing well and without complaint today we will be sent home with apixaban prescription and metoprolol. We will discontinue chlorthalidone we will follow up in the office in the next several days. Patient Condition at Discharge: Fair Plan - Discharge Summary Discharge Rx Participant: No New Discharge Prescriptions: New Apixaban [Eliquis] 5 mg PO BID #60 tab Atorvastatin [Lipitor] 40 mg PO HS #30 tab Metoprolol Tartrate [Lopressor] 25 mg PO BID #60 tab Continue Cholecalciferol [Vitamin D3 (125 Mcg = 5000 Iu)] 125 mcg PO HS Vitamin A Acetate [Vitamin A] 3,000 mcg PO DAILY Probenecid [Benemid] 500 mg PO BID Losartan Potassium 50 mg PO DAILY Ipratropium/Albuter 20-100Mcg [Combivent Respimat 20-100Mcg Inhaler] 1 puff INHALATION RT-QID PRN PRN Reason: Shortness Of Breath Albuterol Sulfate [Ventolin HFA] 2 puff INHALATION RT-QID PRN PRN Reason: Shortness Of Breath Fluticasone Propion/Salmeterol [Wixela 500-50 Inhub] 1 puff INHALATION RT-BID Elderberry/Vitamin C/Zinc 1 tab PO DAILY@1200 Discontinued Aspirin 325 mg PO DAILY Chlorthalidone [Hygroton] 25 mg PO DAILY Discharge Medication List Ipratropium/Albuter 20-100Mcg [Combivent Respimat 20-100Mcg Inhaler] 1 puff INHALATION RT-QID PRN 12/16/22 [History] Losartan Potassium 50 mg PO DAILY 12/16/22 [History] Probenecid [Benemid] 500 mg PO BID 12/16/22 [History] Albuterol Sulfate [Ventolin HFA] 2 puff INHALATION RT-QID PRN 12/31/23 [History] Cholecalciferol [Vitamin D3 (125 Mcg = 5000 Iu)] 125 mcg PO HS 12/31/23 [History] Elderberry/Vitamin C/Zinc 1 tab PO DAILY@1200 12/31/23 [History] Fluticasone Propion/Salmeterol [Wixela 500-50 Inhub] 1 puff INHALATION RT-BID 12/31/23 [History] Vitamin A Acetate [Vitamin A] 3,000 mcg PO DAILY 12/31/23 [History] Apixaban [Eliquis] 5 mg PO BID #60 tab 01/01/24 [Rx] Atorvastatin [Lipitor] 40 mg PO HS #30 tab 01/01/24 [Rx] Metoprolol Tartrate [Lopressor] 25 mg PO BID #60 tab 01/01/24 [Rx] Follow up Appointment(s)/Referral(s): Garrison Torres MD [STAFF PHYSICIAN] - 1 Week Nael Lockhart Jr, DO [Primary Care Provider] - 1 Week Discharge Disposition: HOME SELF-CARE
[2024-01-01 14:44] VITALS: BP 115/74; PULSE 53; TEMP 98
[2024-01-01] MEDS ORDERED: METOPROLOL TARTRATE 12.5 MG TAB PO SCH (21:00)
[2024-01-01] MEDS ORDERED: ATORVASTATIN 40 MG TAB PO SCH (21:00)
[2024-01-01 23:04] LABS: Chol/HDL Ratio 4.91 Ratio; LDL Cholesterol,Calculated 161.8 mg/dL (0.0-131.0)
== END 2024-01-01 14:03 | disposition home or self-care (01) ==
LOC: EC 12:17 → 3SCARD 14:26
PROVIDERS: ADMIT Family Medicine; ATTEND Family Medicine
DX: I48.91 Unspecified atrial fibrillation (principal); J44.89 Other specified chronic obstructive pulmonary disease; I10 Essential (primary) hypertension; E78.5 Hyperlipidemia, unspecified; Z79.899 Other long term (current) drug therapy; Z87.891 Personal history of nicotine dependence; Z88.0 Allergy status to penicillin; Z79.82 Long term (current) use of aspirin
CPT/HCPCS: 96366 ×2; 96365; 99291; 36415; 93005; 85379; 83880; 80061; 80053 ×2; 84443; 83605; 83735 ×2; 84484; 85025 ×2; 85610; 85730 ×2; 71046; G0378 ×2; C8929; Q9957; J1644 ×3; 93306

== ENCOUNTER 2024-02-17 08:27 | Observation (INO) | payer MEDICARE, BC ==
--- NOTE | 2024-02-17 09:25 | ED ---
General Adult HPI - General Chief complaint: Chest Pain Stated complaint: Chest pain Time Seen by Provider: 02/17/24 08:59 Source: patient, RN notes reviewed Mode of arrival: ambulatory Limitations: no limitations - History of Present Illness Initial comments: Patient is a 78-year-old male present to the emergency department with concerns with chest discomfort. Onset of symptoms was yesterday. Discomfort was worse yesterday however still bothering him some today. Discomfort is an ache in the chest. Patient does have some associated dyspnea. Patient woke up sweaty last night. Patient does have some history of previous similar symptoms however unclear why. Patient does have history of A-fib however is not taking his Eliquis secondary to cost. - Related Data Home Medications Medication Instructions Recorded Confirmed Ipratropium/Albuter 20-100Mcg 1 puff INHALATION RT-QID PRN 12/16/22 02/17/24 [Combivent Respimat 20-100Mcg Inhaler] Losartan Potassium 50 mg PO DAILY 12/16/22 02/17/24 Probenecid [Benemid] 500 mg PO BID 12/16/22 02/17/24 Albuterol Sulfate [Ventolin HFA] 2 puff INHALATION RT-QID PRN 12/31/23 02/17/24 Cholecalciferol [Vitamin D3 (125 125 mcg PO HS 12/31/23 02/17/24 Mcg = 5000 Iu)] Elderberry/Vitamin C/Zinc 1 tab PO DAILY@1200 12/31/23 02/17/24 Fluticasone Propion/Salmeterol 1 puff INHALATION RT-BID 12/31/23 02/17/24 [Wixela 500-50 Inhub] Vitamin A Acetate [Vitamin A] 3,000 mcg PO DAILY 12/31/23 02/17/24 Metoprolol Tartrate [Lopressor] 12.5 mg PO BID 02/17/24 02/17/24 Turmeric Root Extract [Turmeric] 500 mg PO BID 02/17/24 02/17/24 Previous Rx's Medication Instructions Recorded Atorvastatin [Lipitor] 40 mg PO HS #30 tab 01/01/24 Allergies Allergy/AdvReac Type Severity Reaction Status Date / Time Penicillins Allergy Rash/Hives Verified 02/17/24 11:21 Review of Systems ROS Statement: Those systems with pertinent positive or pertinent negative responses have been documented in the HPI. ROS Other: All systems not noted in ROS Statement are negative. Constitutional: Denies: fever Eyes: Denies: eye pain ENT: Denies: ear pain Respiratory: Reports: as per HPI, dyspnea Cardiovascular: Reports: as per HPI, chest pain Endocrine: Denies: fatigue Gastrointestinal: Denies: abdominal pain Genitourinary: Denies: dysuria Musculoskeletal: Denies: back pain Skin: Denies: rash Past Medical History Past Medical History: Asthma, COPD, Hyperlipidemia, Hypertension History of Any Multi-Drug Resistant Organisms: None Reported Past Surgical History: Joint Replacement, Orthopedic Surgery, Tonsillectomy Additional Past Surgical History / Comment(s): colonoscopy, both knee replacements, back surgery , Past Anesthesia/Blood Transfusion Reactions: No Reported Reaction Additional Past Anesthesia/Blood Transfusion Reaction / Comment(s): heart skipped some beats during colonoscopy, no blood transfusion Past Psychological History: No Psychological Hx Reported Smoking Status: Former smoker Past Alcohol Use History: None Reported Past Drug Use History: None Reported General Exam Limitations: no limitations General appearance: alert, in no apparent distress Head exam: Present: normocephalic Eye exam: Present: normal appearance Neck exam: Present: normal inspection Respiratory exam: Present: normal lung sounds bilaterally Cardiovascular Exam: Present: irregular rhythm, normal heart sounds Expanded Peripheral pulses: 2+: Radial (R), Radial (L), Posterior Tibialis (R), Posterior Tibialis (L) GI/Abdominal exam: Present: soft. Absent: tenderness Extremities exam: Present: normal inspection. Absent: pedal edema, calf tend erness Neurological exam: Present: alert Psychiatric exam: Present: normal affect, normal mood Skin exam: Present: normal color Course Vital Signs 02/17/24 08:38 Temperature 97.5 F L Pulse Rate 77 Respiratory 18 Rate Blood Pressure 120/75 O2 Sat by Pulse 97 Oximetry EKG Findings - EKG Results: EKG: interpreted by ERMD (Left axis. Low QRS voltage.), normal QRS, normal ST/T EKG shows: atrial fibrillation Medical Decision Making - Medical Decision Making Was pt. sent in by a medical professional or institution (, PA, RESIDENTIAL BUILDER, urgent care, hospital, or long term...) When possible be specific @ -No Did you speak to anyone other than the patient for history (EMS, parent, family, police, friend...)? What history was obtained from this source @ -No Did you review nursing and triage notes (agree or disagree)? Why? @ -I reviewed and agree with nursing and triage notes Were old charts reviewed (outside hosp., previous admission, EMS record, old EKG, old radiological studies, urgent care reports/EKG's, long term records)? Report findings @ -Previous chest x-ray also shows no acute process Differential Diagnosis (chest pain, altered mental status, abdominal pain women, abdominal pain men, vaginal bleeding, weakness, fever, dyspnea, syncope, headache, dizziness, GI bleed, back pain, seizure, CVA, palpatations, mental health, musculoskeletal)? @ -Differential Chest Pain: Stable Angina, Unstable Angina, STEMI, NSTEMI Aortic Dissection, Pneumothorax, Musculoskeletal, Esophageal Spasm GERD, Cholecystitis, Pancreatitis, Zoster, this is not meant to be an all-inclusive list. EKG interpreted by me (3pts min.). @ -As above X-rays interpreted by me (1pt min.). @ -Chest x-ray does not reveal acute abnormality. CT interpreted by me (1pt min.). @ -None done U/S interpreted by me (1pt. min.). @ -None done What testing was considered but not performed or refused? (CT, X-rays, U/S, labs)? Why? @ -None What meds were considered but not given or refused? Why? @ -None Did you discuss the management of the patient with other professionals (professionals i.e. , PA, RESIDENTIAL BUILDER, lab, RT, psych nurse, social worker psychiatric, pot operator, teacher, airframe technical officer, disease case manager)? Give summary @ -Case discussed with Dr. Lazcano. Decision has been made for patient to be admitted after further discussion with the patient. Was smoking cessation discussed for >3mins.? @ -No Was critical care preformed (if so, how long)? @ -31 minutes critical care time Were there social determinants of health that impacted care today? How? (Homelessness, low income, unemployed, alcoholism, drug addiction, transportatio n, low edu. Level, literacy, decrease access to med. care, usp, rehab)? @ -No Was there de-escalation of care discussed even if they declined (Discuss DNR or withdrawal of care, Hospice)? DNR status @ -No What co-morbidities impacted this encounter? (DM, HTN, Smoking, COPD, CAD, Cancer, CVA, ARF, Chemo, Hep., AIDS, mental health diagnosis, sleep apnea, morbid obesity)? @ -A-fib, not currently on anticoagulation Was patient admitted / discharged? Hospital course, mention meds given and route, prescriptions, significant lab abnormalities, going to OR and other pertinent info. @ -Patient presents with chest discomfort and A-fib history not on anticoagulation. Initial evaluation unremarkable. Patient will be admitted with cardiac consult, admission orders written Undiagnosed new problem with uncertain prognosis? @ -No Drug Therapy requiring intensive monitoring for toxicity (Heparin, Nitro, Insulin, Cardizem)? @ -Patient will be heparinized secondary to history of A-fib pending cardiology consult for definitive anticoagulation Were any procedures done? @ -No Diagnosis/symptom? @ -Chest pain Acute, or Chronic, or Acute on Chronic? @ -Acute Uncomplicated (without systemic symptoms) or Complicated (systemic symptoms)? @ -Complicated with A-fib without anticoagulation Side effects of treatment? @ -No Exacerbation, Progression, or Severe Exacerbation? @ -No Poses a threat to life or bodily function? How? (Chest pain, [place], SC, pneumonia, PE, COPD, DKA, ARF, appy, cholecystitis, CVA, Diverticulitis, Homicidal, Suicidal, threat to staff... and all critical care pts) @ -Threat to cardiac function - Lab Data Result diagrams: 02/17/24 09:50 02/17/24 09:50 Lab Results 02/17/24 02/17/24 02/17/24 Range/Units 09:50 09:50 09:50 WBC 10.3 (3.8-10.6) k/uL RBC 5.18 (4.30-5.90) m/uL Hgb 16.3 (13.0-17.5) gm/dL Hct 47.1 (39.0-53.0) % MCV 91.0 (80.0-100.0) fL MCH 31.4 (25.0-35.0) pg MCHC 34.5 (31.0-37.0) g/dL RDW 13.0 (11.5-15.5) % Plt Count 223 (150-450) k/uL MPV 7.2 Neutrophils % 70 % Lymphocytes % 17 % Monocytes % 9 % Eosinophils % 2 % Basophils % 1 % Neutrophils # 7.2 (1.3-7.7) k/uL Lymphocytes # 1.8 (1.0-4.8) k/uL Monocytes # 0.9 (0-1.0) k/uL Eosinophils # 0.2 (0-0.7) k/uL Basophils # 0.1 (0-0.2) k/uL PT 10.5 (10.0-12.5) sec INR 0.9 (<1.2) APTT 24.0 (22.0-30.0) sec D-Dimer 0.39 (<0.60) mg/L FEU Sodium 137 (137-145) mmol/L Potassium 4.5 (3.5-5.1) mmol/L Chloride 103 (98-107) mmol/L Carbon Dioxide 25 (22-30) mmol/L Anion Gap 9 mmol/L BUN 26 H (9-20) mg/dL Creatinine 0.88 (0.66-1.25) mg/dL Est GFR (CKD-EPI)AfAm >90 (>60 ml/min/1.73 sqM) Est GFR (CKD-EPI)NonAf 83 (>60 ml/min/1.73 sqM) Glucose 182 H (74-99) mg/dL Calcium 9.7 (8.4-10.2) mg/dL Magnesium 1.8 (1.6-2.3) mg/dL Total Bilirubin 0.8 (0.2-1.3) mg/dL AST 19 (17-59) U/L ALT 30 (4-49) U/L Alkaline Phosphatase 88 (38-126) U/L Troponin I (0.000-0.034) ng/mL Total Protein 7.5 (6.3-8.2) g/dL Albumin 4.5 (3.5-5.0) g/dL 02/17/24 Range/Units 09:50 WBC (3.8-10.6) k/uL RBC (4.30-5.90) m/uL Hgb (13.0-17.5) gm/dL Hct (39.0-53.0) % MCV (80.0-100.0) fL MCH (25.0-35.0) pg MCHC (31.0-37.0) g/dL RDW (11.5-15.5) % Plt Count (150-450) k/uL MPV Neutrophils % % Lymphocytes % % Monocytes % % Eosinophils % % Basophils % % Neutrophils # (1.3-7.7) k/uL Lymphocytes # (1.0-4.8) k/uL Monocytes # (0-1.0) k/uL Eosinophils # (0-0.7) k/uL Basophils # (0-0.2) k/uL PT (10.0-12.5) sec INR (<1.2) APTT (22.0-30.0) sec D-Dimer (<0.60) mg/L FEU Sodium (137-145) mmol/L Potassium (3.5-5.1) mmol/L Chloride (98-107) mmol/L Carbon Dioxide (22-30) mmol/L Anion Gap mmol/L BUN (9-20) mg/dL Creatinine (0.66-1.25) mg/dL Est GFR (CKD-EPI)AfAm (>60 ml/min/1.73 sqM) Est GFR (CKD-EPI)NonAf (>60 ml/min/1.73 sqM) Glucose (74-99) mg/dL Calcium (8.4-10.2) mg/dL Magnesium (1.6-2.3) mg/dL Total Bilirubin (0.2-1.3) mg/dL AST (17-59) U/L ALT (4-49) U/L Alkaline Phosphatase (38-126) U/L Troponin I 0.028 (0.000-0.034) ng/mL Total Protein (6.3-8.2) g/dL Albumin (3.5-5.0) g/dL Disposition Clinical Impression: Chest pain Disposition: ADMITTED IP TO THIS HOSP Is patient prescribed a controlled substance at d/c from ED?: No Referrals: Nael Lockhart Jr, [Primary Care Provider] - 1-2 days Time of Disposition: 13:35
[2024-02-17] MEDS: NITROGLYCERIN OINT 1 INCH/GM PACKET TOPICAL STA (09:34)
[2024-02-17] MEDS: ASPIRIN 81 MG PO STA (09:36)
[2024-02-17 10:05] LABS: Basophils # (A) 0.1 k/uL (0-0.2); Basophils % (A) 1 %; Eosinophils # (A) 0.2 k/uL (0-0.7); Eosinophils % (A) 2 %; HCT 47.1 % (39.0-53.0); HGB 16.3 gm/dL (13.0-17.5); Lymphocytes # (A) 1.8 k/uL (1.0-4.8); Lymphocytes % (A) 17 %; MCH 31.4 pg (25.0-35.0); MCHC 34.5 g/dL (31.0-37.0); Mean Platelet Volume 7.2; Monocytes # (A) 0.9 k/uL (0-1.0); Monocytes % (A) 9 %; Neutrophils # (A) 7.2 k/uL (1.3-7.7); Neutrophils % (A) 70 %; Platelet Count 223 k/uL (150-450); RBC 5.18 m/uL (4.30-5.90); WBC 10.3 k/uL (3.8-10.6)
[2024-02-17 10:14] LABS: ALT 30 U/L (4-49); AST 19 U/L (17-59); African American GFR (CKD) >90 (>60 ml/min/1.73 sqM); Albumin 4.5 g/dL (3.5-5.0); Alkaline Phosphatase 88 U/L (38-126); Anion Gap 9 mmol/L; Blood Urea Nitrogen 26 mg/dL (9-20); Calcium 9.7 mg/dL (8.4-10.2); Carbon Dioxide 25 mmol/L (22-30); Chloride 103 mmol/L (98-107); Glucose 182 mg/dL (74-99); Magnesium 1.8 mg/dL (1.6-2.3); Non-African American GFR(CKD) 83 (>60 ml/min/1.73 sqM); Potassium 4.5 mmol/L (3.5-5.1); Sodium 137 mmol/L (137-145); Total Bilirubin 0.8 mg/dL (0.2-1.3); Total Protein 7.5 g/dL (6.3-8.2)
--- NOTE | 2024-02-17 10:20 | XR ---
EXAMINATION TYPE: XR chest 2V DATE OF EXAM: 02/17/2024 10:16 AM COMPARISON: 12/31/2023 CLINICAL INDICATION: Male, 78 years old with history of Chest Pain, TECHNIQUE: XR chest 2V view(s) obtained. FINDINGS: The heart size is normal. The pulmonary vasculature is normal. The lungs are clear. IMPRESSION: 1. No acute pulmonary process. [facility], , 02/17/2024 10:18 AM
[2024-02-17 10:30] LABS: INR 0.9 (<1.2); Prothrombin Time 10.5 sec (10.0-12.5)
[2024-02-17] MEDS ORDERED: NITROGLYCERIN SL TABS 0.4 MG TAB SUBLINGUAL PRN (13:36)
[2024-02-17] MEDS: HEPARIN SOD,PORK IN 0.45% NACL 25,000 UNIT in 0.45% NACL 1 250ML.BAG IV SCH (13:56)
[2024-02-17] MEDS: HEPARIN SODIUM 1,000 UN/ML (10ML VL) IV ONE (13:58)
[2024-02-17] MEDS ORDERED: ALBUTEROL NEBULIZED 2.5 MG/3 ML INHALATION PRN (17:16)
[2024-02-17] MEDS ORDERED: IPRATROPIUM-ALBUTEROL 3 ML NEB INHALATION PRN (17:16)
[2024-02-17] MEDS: SYMBICORT 160-4.5 MCG INHALER INHALATION SCH (19:19)
[2024-02-17] MEDS: NITROGLYCERIN OINT 1 INCH/GM PACKET TOPICAL SCH (19:38)
[2024-02-17] MEDS: CHOLECALCIFEROL 125 MCG (5000 IU) TABLET PO SCH (20:31)
[2024-02-17] MEDS: METOPROLOL TARTRATE 12.5 MG TAB PO SCH (20:31)
[2024-02-17] MEDS: ATORVASTATIN 40 MG TAB PO SCH (20:31)
[2024-02-17] MEDS: PROBENECID 500 MG TAB PO SCH (21:00)
[2024-02-17] MEDS: HEPARIN SODIUM 1,000 UN/ML (10ML VL) IV PRN (21:04)
[2024-02-18 08:57] LABS: Chol/HDL Ratio 3.01 Ratio; LDL Cholesterol,Calculated 68.6 mg/dL (0.0-131.0)
[2024-02-18 08:59] VITALS: RESP 18
[2024-02-18] MEDS: LOSARTAN 50 MG TAB PO SCH (08:59)
[2024-02-18] MEDS: ASPIRIN 325 MG TAB PO SCH (08:59)
[2024-02-18 09:10] LABS: Platelet Count 191 X 10*3/uL (140-440)
--- NOTE | 2024-02-18 11:20 | P.CRDCN ---
History of Present Illness History of present illness: HISTORY OF PRESENT ILLNESS: This is a 78-year-old male with a past medical history significant for atrial fibrillation, carotid atherosclerosis with previous right carotid endarterectomy, hypertension, and hyperlipidemia. Patient follows in the office with Dr. Torres. We have been asked to see the patient in consultation for chest pain. Patient examined at the bedside. Patient presented to the hospital with a chief complaint of chest discomfort. Patient states he was having pain across both sides of his chest. He states that it felt like a intense pressure and felt like his ribs were being pulled out. He states that his symptoms are similar to the symptoms he had in December when he came to the hospital and was newly diagnosed with atrial fibrillation. Patient initially was found to be in A-fib. However he converted to sinus mechanism and is maintaining sinus mechanism this morning. He currently denies any chest pain or pressure. Denies any shortness of breath. Patient states he has not been taking his Eliquis as his co-pay is $500 a month. He also reports he is scheduled for stress test in the office on February 28, 2024. DIAGNOSTICS: - EKG reveals atrial fibrillation with controlled ventricular rate. Repeat EKG reveals sinus mechanism. - Chest xray negative for acute process - Laboratory data: WBC 10.3. Hemoglobin 16.3. Platelet count 191. D-dimer 0.3 9. Sodium 137. Potassium 4.5. BUN 26. Creatinine 0.88. Magnesium 1.8. Troponin negative x 3. - Current home cardiac medications include losartan 50 mg daily, metoprolol tartrate 12.5 mg twice a day, Lipitor 40 mg at night - Most recent echocardiogram obtained in December 2023 reveals ejection fraction 60 to 65%, mild aortic regurgitation, mild TR, trace MR. - Cardiac catheterization history: Patient denies REVIEW OF SYSTEMS: At the time of my exam: CONSTITUTIONAL: Denies fever or chills. HEENT: Denies blurred vision, vision changes, or eye pain. Denies hemoptysis CARDIOVASCULAR: Denies chest pain. Denies orthopnea. Denies PND. Denies palpitations RESPIRATORY: Denies shortness of breath. GASTROINTESTINAL: Denies abdominal pain. Denies nausea or vomiting. HEMATOLOGIC: Denies bleeding disorders. GENITOURINARY: Denies any blood in urine. SKIN: Denies pruitis. Denies rash. PHYSICAL EXAM: VITAL SIGNS: Reviewed. GENERAL: Well-developed in no acute distress. HEENT: Head is normocephalic. Pupils are equal, round. Sclerae anicteric. Mucous membranes of the mouth are moist. Neck supple. No JVD or thyromegaly LUNGS: Respirations even and unlabored. Lungs essentially clear to auscultation bilaterally. HEART: Regular rate and rhythm. S1 and S2 heard. ABDOMEN: Soft. Nondistended. Nontender. EXTREMITIES: Normal range of motion. No clubbing or cyanosis. Peripheral pulses intact. No lower extremity edema NEUROLOGIC: Awake and alert. Oriented x 3. ASSESSMENT: Chest pain, troponin negative x 3 Paroxysmal atrial fibrillation, currently maintaining sinus mechanism Hypertension Hyperlipidemia Carotid atherosclerosis with previous right carotid endarterectomy Former nicotine dependence PLAN: An acute coronary event has been ruled out No need to repeat echocardiogram as this was performed in December 2023 Patient states he is unable to afford Eliquis as his co-pay is $500 a month. Will check co-pay for Pradaxa. If co-pay is still too high, we will begin Coumadin Resume additional home cardiac medications Increase metoprolol to 25 mg twice a day Patient may be discharged home this afternoon from a cardiac standpoint Patient has an outpatient stress test scheduled in the office on 02/28/2024 Nurse practitioner note has been reviewed by physician. Signing provider agrees with the documented findings, assessment, and plan of care documented by HEAD SCREEN WORKER as a scribe. Past Medical History Past Medical History: Asthma, COPD, Hyperlipidemia, Hypertension History of Any Multi-Drug Resistant Organisms: None Reported Past Surgical History: Joint Replacement, Orthopedic Surgery, Tonsillectomy Additional Past Surgical History / Comment(s): colonoscopy, both knee replacements, back surgery , Past Anesthesia/Blood Transfusion Reactions: No Reported Reaction Additional Past Anesthesia/Blood Transfusion Reaction / Comment(s): heart skipped some beats during colonoscopy, no blood transfusion Past Psychological History: No Psychological Hx Reported Smoking Status: Former smoker Past Alcohol Use History: None Reported Past Drug Use History: None Reported Medications and Allergies Home Medications Medication Instructions Recorded Confirmed Type Ipratropium/Albuter 20-100Mcg 1 puff INHALATION RT-QID PRN 12/16/22 02/17/24 History [Combivent Respimat 20-100Mcg Inhaler] Losartan Potassium 50 mg PO DAILY 12/16/22 02/17/24 History Probenecid [Benemid] 500 mg PO BID 12/16/22 02/17/24 History Albuterol Sulfate [Ventolin HFA] 2 puff INHALATION RT-QID PRN 12/31/23 02/17/24 History Cholecalciferol [Vitamin D3 (125 125 mcg PO HS 12/31/23 02/17/24 History Mcg = 5000 Iu)] Elderberry/Vitamin C/Zinc 1 tab PO DAILY@1200 12/31/23 02/17/24 History Fluticasone Propion/Salmeterol 1 puff INHALATION RT-BID 12/31/23 02/17/24 History [Wixela 500-50 Inhub] Vitamin A Acetate [Vitamin A] 3,000 mcg PO DAILY 12/31/23 02/17/24 History Atorvastatin [Lipitor] 40 mg PO HS #30 tab 01/01/24 02/17/24 Rx Metoprolol Tartrate [Lopressor] 12.5 mg PO BID 02/17/24 02/17/24 History Turmeric Root Extract [Turmeric] 500 mg PO BID 02/17/24 02/17/24 History Allergies Allergy/AdvReac Type Severity Reaction Status Date / Time Penicillins Allergy Rash/Hives Verified 02/17/24 11:21 Physical Exam Vitals: Vital Signs Temp Pulse Resp BP Pulse Ox 02/18/24 08:53 98.4 F 80 18 122/78 96 02/18/24 05:00 68 20 126/80 02/17/24 23:35 98.9 F 68 18 101/54 96 02/17/24 20:28 87 18 109/97 97 02/17/24 19:41 83 18 103/84 02/17/24 16:00 92 17 116/72 95 02/17/24 14:10 87 11 L 114/70 97 Intake and Output 02/17/24 02/18/24 02/18/24 22:59 06:59 14:59 Intake Total 70.833 148.907 Output Total 400 Balance 70.833 -400 148.907 Intake: Intake, IV Titration 70.833 148.907 Amount Heparin Sod,Pork in 0.45% 70.833 148.907 NaCl 25,000 unit In 0.45 % NaCl 1 250ml.bag @ 9. 798 UNITS/KG/HR 10 mls/hr IV .Q24H [facility] Rx#: [id number] Output: Urine 400 Other: Voiding Method Toilet Weight 102.058 kg Results 02/18/24 02:47 02/17/24 09:50 Cardiac Enzymes 02/17/24 02/17/24 02/17/24 Range/Units 09:50 09:50 14:02 AST 19 (17-59) U/L Troponin I 0.028 0.024 (0.000-0.034) ng/mL 02/17/24 Range/Units 19:37 AST (17-59) U/L Troponin I 0.022 (0.000-0.034) ng/mL Coagulation 02/17/24 02/17/24 02/17/24 Range/Units 09:50 14:02 19:37 PT 10.5 (10.0-12.5) sec APTT 24.0 24.3 35.4 H (22.0-30.0) sec 02/18/24 02/18/24 Range/Units 02:47 07:08 PT (10.0-12.5) sec APTT 49.4 H 52.1 H (22.0-30.0) sec Lipids 02/18/24 Range/Units 02:47 Triglycerides 108.00 (0.00-149.00) mg/dL Cholesterol 135.00 (0.00-200.00) mg/dL HDL Cholesterol 44.80 (40.00-60.00) mg/dL Cholesterol/HDL Ratio 3.01 Ratio CBC 02/17/24 02/18/24 Range/Units 09:50 02:47 WBC 10.3 (3.8-10.6) k/uL RBC 5.18 (4.30-5.90) m/uL Hgb 16.3 (13.0-17.5) gm/dL Hct 47.1 (39.0-53.0) % Plt Count 223 191 (150-450) k/uL Comprehensive Metabolic Panel 02/17/24 Range/Units 09:50 Sodium 137 (137-145) mmol/L Potassium 4.5 (3.5-5.1) mmol/L Chloride 103 (98-107) mmol/L Carbon Dioxide 25 (22-30) mmol/L BUN 26 H (9-20) mg/dL Creatinine 0.88 (0.66-1.25) mg/dL Glucose 182 H (74-99) mg/dL Calcium 9.7 (8.4-10.2) mg/dL AST 19 (17-59) U/L ALT 30 (4-49) U/L Alkaline Phosphatase 88 (38-126) U/L Total Protein 7.5 (6.3-8.2) g/dL Albumin 4.5 (3.5-5.0) g/dL Current Medications Generic Name Dose Route Start Last Admin Trade Name Freq PRN Reason Stop Dose Admin Albuterol Sulfate 2.5 mg 02/17/24 17:16 Albuterol Nebulized 2.5 Mg/3 Ml INHALATION RT-QID PRN Shortness Of Breath Albuterol/Ipratropium 3 ml 02/17/24 17:16 Ipratropium-Albuterol 3 Ml Neb INHALATION RT-QID PRN Shortness Of Breath Aspirin 325 mg 02/18/24 09:00 02/18/24 08:59 Aspirin 325 Mg Tab PO 325 mg DAILY BRAYAN Administration Atorvastatin Calcium 40 mg 02/17/24 21:00 02/17/24 20:31 Atorvastatin 40 Mg Tab PO 40 mg HS BRAYAN Administration Budesonide/Formoterol Fumarate 2 puff 02/17/24 20:00 02/18/24 09:32 Symbicort 160-4.5 Mcg Inhaler INHALATION 2 puff RT-BID BRAYAN Administration Cholecalciferol 125 mcg 02/17/24 21:00 02/17/24 20:31 Cholecalciferol 125 Mcg (5000 Iu) Tablet PO 125 mcg HS BRAYAN Administration Heparin Sodium (Porcine) 0 unit 02/17/24 20:59 02/17/24 21:04 Heparin Sodium 1,000 Un/Ml (10ml Vl) IV 2,550 unit PER PROTOCOL PRN Administration Low PTT Protocol Heparin Sodium/Sodium Chloride 250 mls @ 10 mls/hr 02/17/24 13:45 02/18/24 09:23 25,000 unit/ Sodium Chloride IV 11.798 units/kg/hr .Q24H BRAYAN 12.041 mls/hr Titration Protocol 9.798 UNITS/KG/HR Losartan Potassium 50 mg 02/18/24 09:00 02/18/24 08:59 Losartan 50 Mg Tab PO 50 mg DAILY BRAYAN Administration Metoprolol Tartrate 12.5 mg 02/17/24 21:00 02/18/24 08:59 Metoprolol Tartrate 12.5 Mg Tab PO 12.5 mg BID BRAYAN Administration Nitroglycerin 0.4 mg 02/17/24 13:36 Nitroglycerin Sl Tabs 0.4 Mg Tab SUBLINGUAL Q5M PRN Chest Pain Nitroglycerin 1 inch 02/17/24 18:00 02/18/24 05:33 Nitroglycerin Oint 1 Inch/Gm Packet TOPICAL Not Given Q6HR [facility] Probenecid 500 mg 02/17/24 21:00 02/18/24 08:59 Probenecid 500 Mg Tab PO 500 mg BID BRAYAN Administration Intake and Output 02/17/24 02/18/24 02/18/24 22:59 06:59 14:59 Intake Total 70.833 148.907 Output Total 400 Balance 70.833 -400 148.907 Intake: Intake, IV Titration 70.833 148.907 Amount Heparin Sod,Pork in 0.45% 70.833 148.907 NaCl 25,000 unit In 0.45 % NaCl 1 250ml.bag @ 9. 798 UNITS/KG/HR 10 mls/hr IV .Q24H [facility] Rx#: [id number] Output: Urine 400 Other: Voiding Method Toilet Weight 102.058 kg 02/18/24 02:47 02/17/24 09:50
[2024-02-18] MEDS: METOPROLOL TARTRATE 25 MG TAB PO SCH (11:33)
--- NOTE | 2024-02-18 15:15 | P.HPIM ---
History of Present Illness H&P Date: 02/18/24 Chief Complaint: Shortness of breath Is a 78-year-old male with known atrial fibrillation. He is not been on and any anticoagulation due to cost. He came the emergency room last night with increased shortness of breath and chest discomfort. Symptoms been going on some time. He reports his heart rate was elevated as well. After arriving his EKG was showing normal QRS. Along with A-fib. He was afebrile, vital signs were stable initial troponin negative. Review of Systems All systems: negative Past Medical History Past Medical History: Asthma, COPD, Hyperlipidemia, Hypertension History of Any Multi-Drug Resistant Organisms: None Reported Past Surgical History: Joint Replacement, Orthopedic Surgery, Tonsillectomy Additional Past Surgical History / Comment(s): colonoscopy, both knee replacements, back surgery , Past Anesthesia/Blood Transfusion Reactions: No Reported Reaction Additional Past Anesthesia/Blood Transfusion Reaction / Comment(s): heart skipp ed some beats during colonoscopy, no blood transfusion Past Psychological History: No Psychological Hx Reported Smoking Status: Former smoker Past Alcohol Use History: None Reported Past Drug Use History: None Reported Medications and Allergies Home Medications Medication Instructions Recorded Confirmed Type Ipratropium/Albuter 20-100Mcg 1 puff INHALATION RT-QID PRN 12/16/22 02/17/24 History [Combivent Respimat 20-100Mcg Inhaler] Losartan Potassium 50 mg PO DAILY 12/16/22 02/17/24 History Probenecid [Benemid] 500 mg PO BID 12/16/22 02/17/24 History Albuterol Sulfate [Ventolin HFA] 2 puff INHALATION RT-QID PRN 12/31/23 02/17/24 History Cholecalciferol [Vitamin D3 (125 125 mcg PO HS 12/31/23 02/17/24 History Mcg = 5000 Iu)] Elderberry/Vitamin C/Zinc 1 tab PO DAILY@1200 12/31/23 02/17/24 History Fluticasone Propion/Salmeterol 1 puff INHALATION RT-BID 12/31/23 02/17/24 History [Wixela 500-50 Inhub] Vitamin A Acetate [Vitamin A] 3,000 mcg PO DAILY 12/31/23 02/17/24 History Atorvastatin [Lipitor] 40 mg PO HS #30 tab 01/01/24 02/17/24 Rx Metoprolol Tartrate [Lopressor] 12.5 mg PO BID 02/17/24 02/17/24 History Turmeric Root Extract [Turmeric] 500 mg PO BID 02/17/24 02/17/24 History Allergies Allergy/AdvReac Type Severity Reaction Status Date / Time Penicillins Allergy Rash/Hives Verified 02/17/24 11:21 Physical Exam Vitals: Vital Signs Temp Pulse Resp BP Pulse Ox 02/18/24 13:00 56 L 18 91/61 95 02/18/24 12:49 57 L 18 97 02/18/24 11:00 63 18 105/76 97 02/18/24 08:53 98.4 F 80 18 122/78 96 02/18/24 05:00 68 20 126/80 02/17/24 23:35 98.9 F 68 18 101/54 96 02/17/24 20:28 87 18 109/97 97 02/17/24 19:41 83 18 103/84 02/17/24 16:00 92 17 116/72 95 Intake and Output 02/18/24 02/18/24 02/18/24 06:59 14:59 22:59 Intake Total 179.167 Output Total 400 Balance -400 179.167 Intake: Intake, IV Titration 179.167 Amount Heparin Sod,Pork in 0.45% 179.167 NaCl 25,000 unit In 0.45 % NaCl 1 250ml.bag @ 9. 798 UNITS/KG/HR 10 mls/hr IV .[facility] Rx#: [id number] Output: Urine 400 Other: Voiding Method Toilet GENERAL: well-nourished 78-year-old male and in no acute distress. HEAD: Atraumatic, normocephalic. EYES: Pupils equal round and reactive to light, extraocular movements intact, sclera anicteric, conjunctiva are normal. ENT:nares patent, oropharynx clear without exudates. Moist mucous membranes. NECK: Normal range of motion, supple without lymphadenopathy or JVD, no thyromegaly LUNGS: Breath sounds clear to auscultation bilaterally and equal. No wheezes rales or rhonchi. HEART: Regular rate and rhythm without murmurs, rubs or gallops.S1S2 Normal ABDOMEN: Soft, nontender, normoactive bowel sounds. No guarding, no rebound. No masses appreciated. EXTREMITIES: Normal range of motion, no pitting or edema. No clubbing or cyanosis. NEUROLOGICAL: Cranial nerves II through XII grossly intact. Normal speech, normal gait. PSYCH: Normal mood, normal affect. SKIN: Warm, Dry, normal turgor, no rashes or lesions noted. Results CBC & Chem 7: 02/18/24 02:47 02/17/24 09:50 Labs: Abnormal Lab Results - Last 24 Hours (Table) 02/17/24 02/18/24 02/18/24 Range/Units 19:37 02:47 07:08 APTT 35.4 H 49.4 H 52.1 H (22.0-30.0) sec Chest x-ray: report reviewed Thrombosis Risk Factor Assmnt - DVT/VTE Prophylaxis DVT/VTE Prophylaxis: Pharmacologic Prophylaxis ordered (Lovenox ordered) Assessment and Plan (1) Paroxysmal atrial fibrillation Current Visit: Yes Status: Acute Code(s): I48.0 - PAROXYSMAL ATRIAL FIBR ILLATION SNOMED Code(s): 653310714 (2) Gout Current Visit: Yes Status: Acute Code(s): M10.9 - GOUT, UNSPECIFIED SNOMED Code(s): 95712068 (3) Chest pain Current Visit: Yes Status: Acute Code(s): R07.9 - CHEST PAIN, UNSPECIFIED SNOMED Code(s): 68377999 (4) Dyspnea Current Visit: No Status: Acute Code(s): R06.00 - DYSPNEA, UNSPECIFIED SNOMED Code(s): 659065832 Plan: Wait on serial troponins, consult cardiology further evaluation. Will attempt to figure out something regarding his anticoagulation. I will reorder his home medications.
--- NOTE | 2024-02-18 15:23 | P.DS ---
Providers Date of admission: 02/17/24 13:37 Expected date of discharge: 02/18/24 Attending physician: Jevon Lazcano Consults: 02/17/24 13:36 Consult Physician Urgent Consulting Provider: Garrison Torres Consult Reason/Comments: cp, A-fib, not on anticoagulation secondary to cost Do you want consulting provider notified?: Yes Primary care physician: Nael Lockhart - Discharge Diagnosis(es) (1) Paroxysmal atrial fibrillation Current Visit: Yes Status: Acute (2) Gout Current Visit: Yes Status: Acute (3) Chest pain Current Visit: Yes Status: Acute (4) Dyspnea Current Visit: No Status: Acute Hospital Course: He was admitted to the emergency room after having increased shortness of breath. He reported his heart rate was up but it improved by the time he came emergency room. He has known atrial fibrillation. He is unable to afford his anticoagulation. He was Evaluated by cardiology. Due to the cost of the medications Coumadin was thought to be the most appropriate choice. [facility] will follow him. He will receive a [place] Coumadin before he goes. I given him a sample pack of Eliquis to bridge him until his Coumadin is therapeutic. Patient is returned to baseline status when be discharged home. He will follow-up with [facility] or if need be in the emergency room. He will have Coumadin education and be aware of increased risk of bleeding before discharge. Plan - Discharge Summary New Discharge Prescriptions: New Aspirin 81 mg PO DAILY tab Warfarin [Coumadin] 5 mg PO DAILY 30 Days #30 tab Apixaban [Eliquis] 5 mg PO DAILY #14 tablet Continue Cholecalciferol [Vitamin D3 (125 Mcg = 5000 Iu)] 125 mcg PO HS Vitamin A Acetate [Vitamin A] 3,000 mcg PO DAILY Turmeric Root Extract [Turmeric] 500 mg PO BID Probenecid [Benemid] 500 mg PO BID Losartan Potassium 50 mg PO DAILY Ipratropium/Albuter 20-100Mcg [Combivent Respimat 20-100Mcg Inhaler] 1 puff INHALATION RT-QID PRN PRN Reason: Shortness Of Breath Albuterol Sulfate [Ventolin HFA] 2 puff INHALATION RT-QID PRN PRN Reason: Shortness Of Breath Fluticasone Propion/Salmeterol [Wixela 500-50 Inhub] 1 puff INHALATION RT-BID Elderberry/Vitamin C/Zinc 1 tab PO DAILY@1200 Atorvastatin [Lipitor] 40 mg PO HS #30 tab Metoprolol Tartrate [Lopressor] 12.5 mg PO BID Discharge Medication List Ipratropium/Albuter 20-100Mcg [Combivent Respimat 20-100Mcg Inhaler] 1 puff INHALATION RT-QID PRN 12/16/22 [History] Losartan Potassium 50 mg PO DAILY 12/16/22 [History] Probenecid [Benemid] 500 mg PO BID 12/16/22 [History] Albuterol Sulfate [Ventolin HFA] 2 puff INHALATION RT-QID PRN 12/31/23 [History] Cholecalciferol [Vitamin D3 (125 Mcg = 5000 Iu)] 125 mcg PO HS 12/31/23 [History] Elderberry/Vitamin C/Zinc 1 tab PO DAILY@1200 12/31/23 [History] Fluticasone Propion/Salmeterol [Wixela 500-50 Inhub] 1 puff INHALATION RT-BID 12/31/23 [History] Vitamin A Acetate [Vitamin A] 3,000 mcg PO DAILY 12/31/23 [History] Atorvastatin [Lipitor] 40 mg PO HS #30 tab 01/01/24 [Rx] Metoprolol Tartrate [Lopressor] 12.5 mg PO BID 02/17/24 [History] Turmeric Root Extract [Turmeric] 500 mg PO BID 02/17/24 [History] Apixaban [Eliquis] 5 mg PO DAILY #14 tablet 02/18/24 [Rx] Aspirin 81 mg PO DAILY tab 02/18/24 [Rx] Warfarin [Coumadin] 5 mg PO DAILY 30 Days #30 tab 02/18/24 [Rx] Follow up Appointment(s)/Referral(s): Nael Lockhart Jr, DO [Primary Care Provider] - 3 Days Garrison Torres MD [STAFF PHYSICIAN] - 3 Days (For Coumadin level check on Wednesday, February 20) Ambulatory/Diagnostic Orders: Miscellaneous Lab Order [LAB.AMB] Time Frame: 02/21/24, Location: None Selected Discharge Disposition: HOME SELF-CARE
[2024-02-18] MEDS: WARFARIN 5 MG TAB PO ONE (16:08)
[2024-02-18 16:53] VITALS: BP 96/66; PULSE 64; TEMP 98.3
[2024-02-18] MEDS ORDERED: ENOXAPARIN 100 MG/ML SYRINGE SQ SCH (21:00)
[2024-02-19] MEDS ORDERED: ASPIRIN 81 MG PO SCH (09:00)
== END 2024-02-18 16:30 | disposition home or self-care (01) ==
LOC: EC 08:27 → 6NMEDSUR 13:37
PROVIDERS: ADMIT Family Medicine; ATTEND Family Medicine
DX: R07.89 Other chest pain (principal); I48.0 Paroxysmal atrial fibrillation; T45.516A Underdosing of anticoagulants, initial encounter; Z91.120 Patient's intentional underdosing of medication regimen due to financial hardship; I10 Essential (primary) hypertension; E78.5 Hyperlipidemia, unspecified; I08.3 Combined rheumatic disorders of mitral, aortic and tricuspid valves; I65.21 Occlusion and stenosis of right carotid artery; M10.9 Gout, unspecified; Z79.51 Long term (current) use of inhaled steroids; Z79.899 Other long term (current) drug therapy; Z88.0 Allergy status to penicillin; Z87.891 Personal history of nicotine dependence
CPT/HCPCS: 96376; 96365; 96366 ×2; 99291; 36415; 94640 ×2; 93005; 85379; 80061; 80053; 83735; 84484; 85025; 85049; 85610; 85730 ×2; 71046; G0378 ×2; J1644 ×3

== ENCOUNTER 2024-04-06 08:51 | Day surgery (SDC) | payer MEDICARE, BC ==
[2024-04-05 09:41] VITALS: BMI 29.5
[~2024-04-06 08:51] MED LIST: ALPRAZolam 0.25 MG TAB PO PRN; ALPRAZolam 0.5 MG TAB PO PRN; HEPARIN SODIUM,PORCINE (1 ML) 2,500 UNIT in SODIUM CHLORIDE 0.9% 250 ML IRRIGATION PRN; HEPARIN SODIUM,PORCINE 10,000 UNIT in SODIUM CHLORIDE 0.9% 1,000 ML IRRIGATION PRN; NITROGLYCERIN SL TABS 0.4 MG TAB SUBLINGUAL PRN
[2024-04-06] MEDS: SODIUM CHLORIDE 0.9% 1,000 ML IV ONE (09:05)
[2024-04-06 09:15] VITALS: RESP 16; TEMP 16
[2024-04-06 09:27] LABS: INR 1.4 (<1.2); Prothrombin Time 14.7 sec (10.0-12.5)
[2024-04-06] MEDS: SODIUM CHLORIDE 0.9% 1,000 ML in EMPTY BAG 1 BAG IV SCH (09:27)
[2024-04-06] MEDS: ASPIRIN 325 MG TAB PO STA (09:27)
[2024-04-06] MEDS: LIDOCAINE 1% INJ 10MG/ML (20 ML MDV) SQ ONE (11:03)
[2024-04-06] MEDS: MIDAZOLAM 2 MG/2 ML VIAL IVP ONE (11:03)
[2024-04-06] MEDS: VERAPAMIL SYRINGE (5 MG/10 ML) INTRAARTER ONE (11:05)
[2024-04-06] MEDS: HEPARIN SODIUM 1,000 UN/ML (10ML VL) IVP ONE (11:09)
[2024-04-06] MEDS: HEPARIN SODIUM,PORCINE (1 ML) 2,500 UNIT in SODIUM CHLORIDE 0.9% 250 ML IRRIGATION ONE (11:16)
[2024-04-06] MEDS: HEPARIN SODIUM,PORCINE 10,000 UNIT in SODIUM CHLORIDE 0.9% 1,000 ML IRRIGATION ONE (11:16)
[2024-04-06] MEDS: IOPAMIDOL-370 100ML BTL INJ ONE (11:25)
[2024-04-06] MEDS ORDERED: RX INFO: IV CONTRAST WAS GIVEN 1 EACH MISC MISCELLANE PRN (11:30)
[2024-04-06] MEDS: SODIUM CHLORIDE 0.9% 1,000 ML IV SCH (11:30)
--- NOTE | 2024-04-06 11:33 | P.PCN ---
Date of Procedure: 04/06/24 Operative Findings: CARDIAC CATHETERIZATION PERFORMING PHYSICIAN: Garrison Torres MD, RPVI PROCEDURE PERFORMED: 1. Selective right and left coronary angiogram 2. Left heart catheterization 3. Ultrasound-guided access of the right radial artery INDICATION: Symptomatic 78-year-old gentleman with abnormal myocardial perfusion imaging stress COMPLICATION: None APPROACH: Right radial artery LEVEL OF SEDATION: Moderate with a sedation length of 14 minutes PROCEDURE DESCRIPTION: After obtaining an informed consent, the patient was brought to cardiac laborer cook house. Local anesthesia was performed using lidocaine subcutaneously. The right radial artery was cannulated using Seldinger technique, under ultrasound guidance, the guidewire passed easily, following that we advanced a 5-Portuguese sheath dilator assembly, the wire and dilator were removed and sheath was flushed. Following that, 2 mg of verapamil along with 5000 unit heparin were given. Selective right and left coronary angiogram using a 5-Portuguese JR4 and JL 3.5 catheters. Following that we did left heart catheterization using 5-Portuguese pigtail catheter. The procedure was completed there was no complication. SELECTIVE CORONARY ANGIOGRAM: The right coronary artery: Large-caliber vessel and a dominant vessel with mild disease only Left main: Is angiographically normal The left circumflex: Large caliber vessel nondominant vessel with mild disease involving the first obtuse marginal branch of the left circumflex The left anterior descending artery: Large caliber vessel. Appears to have mild disease only. Gives rise into a into a medium size diagonal branch which appears to be occluded in the mid portion. HEMODYNAMICS: The LVEDP was about 14 mmHg with no significant gradient across aortic valve CONCLUSION: 1. Occluded medium size diagonal branch 2. Normal left-sided filling pressure POSTPROCEDURE MANAGEMENT: Medical treatment
[2024-04-06 13:30] VITALS: PULSE 60
[2024-04-06 14:20] VITALS: BP 122/66
== END 2024-04-06 14:26 | disposition home or self-care (01) ==
LOC: CATHCVL 08:51
PROVIDERS: ATTEND Internal Medicine Interventional Cardiology
DX: I25.110 Atherosclerotic heart disease of native coronary artery with unstable angina pectoris (principal); I48.0 Paroxysmal atrial fibrillation; I10 Essential (primary) hypertension; E78.5 Hyperlipidemia, unspecified; I77.810 Thoracic aortic ectasia; I08.0 Rheumatic disorders of both mitral and aortic valves; I65.23 Occlusion and stenosis of bilateral carotid arteries; E66.3 Overweight; Z68.31 Body mass index [BMI] 31.0-31.9, adult; F17.210 Nicotine dependence, cigarettes, uncomplicated; Z79.02 Long term (current) use of antithrombotics/antiplatelets; Z79.82 Long term (current) use of aspirin; Z79.51 Long term (current) use of inhaled steroids; Z79.899 Other long term (current) drug therapy; Z88.0 Allergy status to penicillin
CPT/HCPCS: 93458; 85610; C1769 ×2; C1894; J2250; J1644 ×3; J2003; Q9967